=== PATIENT | female | born 1955 | race Hispanic/Latino ===

== ENCOUNTER 2016-12-17 15:49 | Emergency (ER) | payer MEDICAID ==
[2016-12-17 15:55] VITALS: BMI 25.0
[2016-12-17 16:05] VITALS: TEMP 98.3
--- NOTE | 2016-12-17 17:06 | ED PDOC ---
Arrival/HPI - General Historian: Patient, Family - General Chief Complaint: Syncope Time Seen by Provider: 12/17/16 16:04 - History of Present Illness Narrative History of Present Illness (Text): 12/17/16 16:55 Pt is a 61 year old female with past medical history significant for seizures and high cholesterol who presents with recent seizure activity 30 minutes prior to arrival. The patient is joined by her brother in the room for the interview. The patient is able to recall walking into a grocery store earlier today with feelings of severe headache and lethargy and then waking up surrounded by bystanders. Pt states she often feels these symptoms prior to her seizures. The patient's brother reports that eye witnesses reported seeing the patient collapse and visibly convulse. He is unsure of how long the convulsions lasted or whether or not the patient struck her head when she fell. Patient was brought to the ED emergency department via EMS. Pt reports her last seizure activity was 12/13/2016 and she is compliant with her current epileptic medical regiment of Zonisamide and Lacosamide. She denies new medications and illicit drug use. She denies headache, change in vision, fever, diarrhea, or shortness of breath. 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) - Musculoskeletal/Rheumatological Hx Back Pain: Yes (Sciatic nerve) - Gastrointestinal Hx Gall Bladder Disease: Yes Hx Gastroesophageal Reflux: Yes - Psychiatric Hx Depression: No Hx Emotional Abuse: No Hx Physical Abuse: No Hx Substance Use: No - Surgical History Hx Cholecystectomy: Yes - Anesthesia Hx Anesthesia Reactions: No Hx Malignant Hyperthermia: No - Suicidal Assessment Feels Threatened In Home Enviroment: No Family/Social History - Physician Review Nursing Documentation Reviewed: Yes Family/Social History: No Known Family HX Smoking Status: Never Smoked Hx Alcohol Use: No Hx Substance Use: No Hx Substance Use Treatment: No Allergies/Home Meds Allergies/Adverse Reactions: Allergies No Known Allergies Allergy (Verified 12/17/16 15:55) Home Medications: Home Meds Medication Instructions Recorded Confirmed Unobtainable 12/17/16 12/17/16 Review of Systems - Physician Review All systems were reviewed & negative as marked: Yes - Review of Systems Constitutional: absent: Fevers Eyes: absent: Vision Changes Respiratory: absent: SOB Cardiovascular: absent: Chest Pain Neurological: Headache. absent: Focal Weakness Physical Exam Vital Signs Reviewed: Yes Temperature: Afebrile Blood Pressure: Normal Pulse: Regular Respiratory Rate: Normal Appearance: Positive for: Well-Appearing Pain Distress: None Mental Status: Positive for: Alert and Oriented X 3 Finger Stick Blood Glucose: 130 - Systems Exam Head: Present: Atraumatic, Normocephalic Pupils: Present: PERRL Extroacular Muscles: Present: EOMI Mouth: Present: Moist Mucous Membranes Neck: Present: Normal Range of Motion. No: Meningeal Signs Respiratory/Chest: Present: Clear to Auscultation, Good Air Exchange. No: Respiratory Distress, Accessory Muscle Use, Wheezes Cardiovascular: Present: Regular Rate and Rhythm, Normal S1, S2. No: Murmurs Abdomen: Present: Normal Bowel Sounds. No: Tenderness, Distention, Peritoneal Signs Upper Extremity: Present: Normal Inspection. No: Cyanosis, Edema Lower Extremity: Present: Normal Inspection. No: Edema Neurological: Present: GCS=15, CN II-XII Intact, Speech Normal, Motor Func Grossly Intact, Normal Sensory Function Skin: Present: Warm, Dry, Normal Color. No: Rashes Psychiatric: Present: Alert, Oriented x 3, Normal Insight, Normal Concentration Medical Decision Making - Lab Interpretations I have reviewed the lab results: Yes - RAD Interpretation Diamond Saw Operator: Radiologist - EKG Interpretation Interpreted by ED Physician: Yes Type: 12 lead EKG ED Course and Treatment: 12/17/16 17:09 Impression: Pt is a 61 year old female with past medical history significant for seizures who presents to the emergency department after have witnessed seizure activity 30 minutes prior to arrival. Differential Diagnosis included but are not limited to: - Primary seizure - Syncope Plan: - Imaging: EKG, CT w/o contrast of Head - Labs: CBC, CMP, Mg, Phos, Cardiac enzymes - Discussed with patient she is not allowed to drive - Discussed with patient to follow up with neurologist - Reassess and disposition Progress Notes: 12/17/16 17:19 12/17/16 21:04 - Pt refuses to stay and wait for primary care provider for further work up - Discussed with patient need to follow up with primary care provider and neurologist and patient is in understanding - Advised patient she is to not drive, operate heavy machinery, or swim (Benjamin Sher) 12/17/16 18:05 Patient seen and examined with resident. Came up with treatment and disposition plan with resident. pt has a hx of seizures, had a witnessed seizure currently in no distress with no focal neurological deficits on examination PMD pages, awaiting callback pt refuses to be admitted, states she wants to be dc'd home ambulates with steady gait in no distress instructed to f/u with her PMD and neurologist outpatient and to return to the ER for new or worsening symptoms (Cody Vasquez) - Lab Interpretations Lab Results: 12/17/16 18:00 12/17/16 18:00 Lab Results 12/17/16 18:00: Sodium 139, Potassium 4.0, Chloride 106, Carbon Dioxide 24, Anion Gap 13, BUN 12, Creatinine 0.9, Est GFR ( Amer) > 60, Est GFR (Non- Af Amer) > 60, Random Glucose 93, Calcium 9.0, Phosphorus 2.5, Magnesium 2.1, Total Bilirubin 0.3, AST 20, ALT 16, Alkaline Phosphatase 124, Lactate Dehydrogenase 562, Total Creatine Kinase 49, Troponin I < 0.01, Total Protein 6.8, Albumin 3.8, Globulin 3.0, Albumin/Globulin Ratio 1.3 12/17/16 18:00: WBC 7.6, RBC 4.47, Hgb 13.8, Hct 40.4, MCV 90.4, MCH 30.9, MCHC 34.2, RDW 12.7, Plt Count 297, MPV 8.8, Gran % 74.5 H, Lymph % (Auto) 15.4 L, [place] % (Auto) 6.7 H, Eos % (Auto) 3.0, Baso % (Auto) 0.4, Gran # 5.66, Lymph # 1.2, [place] # 0.5, Eos # 0.2, Baso # 0.03 12/17/16 16:11: POC Glucose (mg/dL) 130 H - RAD Interpretation Narrative RAD Interpretations (Text): 12/17/16 19:58 Findings: Brain: There are scattered foci of hypodensity within the cerebral white matter , likely representing small vessel ischemic disease in a patient this age. The acuity of the white matter disease is indeterminate. The white-nicole differentiation is preserved demonstrating no acute territorial type infarct. The white-nicole differentiation is preserved demonstrating no acute territorial type infarct. There is mild prominence of the ventricles and sulci, compatible with atrophy. No acute intracranial hemorrhage is seen. (Benjamin Sher) Radiology Orders: 12/17/16 16:51 HEAD W/O CONTRAST [CT] Stat - EKG Interpretation EKG Interpretation (Text): 12/17/16 17:20 Rate of 73 bpm, NSR, No acute ST elevations (Benjamin Sher) - PA / PINION SORTER / Resident Statement MD/DO has reviewed & agrees with the documentation as recorded. MD/DO has examined the patient and agrees with the treatment plan. Disposition/Present on Arrival - Present on Arrival Any Indicators Present on Arrival: No History of DVT/PE: No History of Uncontrolled Diabetes: No Urinary Catheter: No History of Decub. Ulcer: No History Surgical Site Infection Following: None - Disposition Have Diagnosis and Disposition been Completed?: Yes Disposition Time: 21:06 Patient Plan: Discharge - Disposition Diagnosis: Seizure Disposition: HOME/ ROUTINE Condition: GOOD Additional Instructions: Mrs. Puentes, thank you for letting us take care of you today. Your provider was Dr. Sher. You were treated for seizure. The emergency medical care you received today was directed at your acute symptoms. If you were prescribed any medication, please fill it and take as directed. It may take several days for your symptoms to resolve. Return to the Emergency Department if your symptoms worsen, do not improve, or if you have any other problems. Please contact your doctor or call one of the physicians/clinics you have been referred to that are listed on the Patient Visit Information form that is included in your discharge packet. Bring any paperwork you were given at discharge with you along with any medications you are taking to your follow up visit. Our treatment cannot replace ongoing medical care by a primary care provider (PCP) outside of the emergency department. Thank you for allowing the [facility] team to be part of your care today. FOLLOW UP WITH PRIMARY CARE PROVIDER FOLLOW UP WITH NEUROLOGIST Referrals: Halley Fowler MD [Primary Care Provider] - Follow up with primary
[2016-12-17 17:13] VITALS: PULSE 75
[2016-12-17 18:08] LABS: BASO # 0.03 K/mm3 (0.0-2.0); BASO % 0.4 % (0.0-3.0); EOS # 0.2 (0.0-0.7); GRAN # 5.66 (1.4-6.5); GRAN % 74.5 % (50.0-68.0); HEMOGLOBIN 13.8 gm/dL (12.0-16.0); LYMPH # 1.2 (1.2-3.4); LYMPH % 15.4 % (22.0-35.0); MEAN CELL VOLUME 90.4 fL (80.0-105.0); MEAN CORPUSCULAR HEMOGLOBIN 30.9 pg (25.0-35.0); MEAN CORPUSCULAR HGB CONC 34.2 g/dl (31.0-37.0); MEAN PLATELET VOLUME 8.8 fl (7.0-11.0); MONO # 0.5 (0.1-0.6); MONO % 6.7 % (1.0-6.0); PLATELET COUNT 297 10^3/uL (120.0-450.0); RBC 4.47 10^6/uL (3.5-6.1); RED CELL DISTRIBUTION WIDTH 12.7 % (11.5-14.5); WHITE BLOOD COUNT 7.6 10^3/ul (4.5-11.0)
[2016-12-17 18:24] LABS: ALB/GLOB RATIO 1.3 (1.1-1.8); ALBUMIN 3.8 g/dL (3.0-4.8); ALT/SGPT 16 U/L (7-56); AST/SGOT 20 U/L (15-39); BLOOD UREA NITROGEN 12 mg/dL (7-21); GFR AFRICAN-AMERICAN > 60; GFR NON-AFRICAN AMERICAN > 60; MAGNESIUM 2.1 mg/dL (1.7-2.2)
[2016-12-17 18:43] LABS: TROPONIN I < 0.01 ng/mL
--- NOTE | 2016-12-17 19:38 | CT ---
EXAM: CT Head Without Intravenous Contrast CLINICAL HISTORY: The patient age is 61 years old and is female; Pain; Headache; Headache not specified; Additional info: Seizure activity Facility exam id and description: Ct heads head w/o contrast TECHNIQUE: Axial computed tomography images of the head/brain without intravenous contrast. This CT exam was performed using one or more of the following dose reduction techniques: automated exposure control, adjustment of the mA and/or kV according to patient size, and/or use of iterative reconstruction technique. EXAM DATE/TIME: 12/17/2016 4:51 PM COMPARISON: No relevant prior studies available. FINDINGS: Brain: There are scattered foci of hypodensity within the cerebral white matter, likely representing small vessel ischemic disease in a patient this age. The acuity of the white matter disease is indeterminate. The white-nicole differentiation is preserved demonstrating no acute territorial type infarct. There is mild prominence of the ventricles and sulci, compatible with atrophy. No acute intracranial hemorrhage is seen. Midline shift: There is no midline shift. Ventricles: See above. Bones/joints: The calvarium demonstrates no evidence for a depressed fracture. Soft tissues: No acute abnormality. Vasculature: There is mild atherosclerotic calcification of the cavernous internal carotid arteries. Sinuses: Unremarkable as visualized. No acute sinusitis. Mastoid air cells: No mastoid effusion. IMPRESSION: 1. No acute intracranial hemorrhage or acute territorial type infarct. 2. There are scattered foci of hypodensity within the cerebral white matter, likely representing small vessel ischemic disease in a patient this age. 3. Mild atrophy.
--- NOTE | 2016-12-17 20:32 | CARD ---
APPROVED REPORT EKG Measurement Heart [id number] <Conclusion> Normal sinus rhythm with sinus arrhythmia Normal ECG
[2016-12-17 21:30] VITALS: BP 140/72; RESP 16; O2SAT 99
== END 2016-12-17 21:15 | disposition home or self-care (01) ==
LOC: ED 15:49
DX: R56.9 Unspecified convulsions (principal); E78.00 Pure hypercholesterolemia, unspecified

== ENCOUNTER 2017-08-09 08:52 | Inpatient (IN) | payer MEDICAID ==
--- NOTE | 2017-08-09 09:30 | ED PDOC ---
Arrival/HPI - General Historian: Patient - History of Present Illness Time/Duration: Prior to Arrival, > week Symptom Onset: Sudden Symptom Course: Resolved Quality: Tightness Severity Level: 1 Activities at Onset: Rest Context: Sitting <Avtar Hayes - Last Filed: 08/09/17 13:59> <Fidencio Bertrand - Last Filed: 08/09/17 18:16> - General Chief Complaint: Palpitations Time Seen by Provider: 08/09/17 09:15 - History of Present Illness Narrative History of Present Illness (Text): 08/09/17 09:24 61F w/ hx of seizures presents to ED w/ elevated heart rate in 140s from same day surgery. Patient was initially scheduled to have a colonoscopy and EGD for heart burn for many years. In the ED patient denies current symptoms of chest pain, heart palpitations, nausea, vomiting diarrhea. One week ago, patient had left sided chest pain described as chest tightness radiated to the left arm. Pain subsided after 2-3 days. Admits to being non-compliant with taking Aspirin. Of note: sees employment consultant and is scheduled to have a stress test done in August of 2017. PMH: Seziures ALL: NKDA SocialHx: denies Tobacco, etoh, recreational drug use. 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 States she needs to get back home to care for her . stays active and walks 15 blocks per day 08/09/17 09:30 (MerchantAvtar) Past Medical History - Provider Review Nursing Documentation Reviewed: Yes - Travel History Have you recently traveled outside [place] w/in the past 3 mons?: No - Past History Past History: Non-Contributing - Infectious Disease Hx of Infectious Diseases: None - Tetanus Immunization Tetanus Immunization: Unknown - Cardiac Hx Heart Murmur: Yes - Pulmonary Hx Respiratory Disorders: No - Neurological Hx Seizures: Yes - HEENT Hx HEENT Disorder: No - Renal Hx Renal Disorder: No - Endocrine/Metabolic Hx Endocrine Disorders: No - Hematological/Oncological Hx Blood Disorders: No - Integumentary Hx Dermatological Disorder: No - Musculoskeletal/Rheumatological Hx Musculoskeletal Disorders: No - Gastrointestinal Hx Gall Bladder Disease: Yes Hx Gastroesophageal Reflux: Yes - Genitourinary/Gynecological Hx Genitourinary Disorders: No - Psychiatric Hx Panic Disorder: Yes Hx Substance Use: No - Surgical History Hx Cholecystectomy: Yes - Anesthesia Hx Anesthesia Reactions: No Hx Malignant Hyperthermia: No - Suicidal Assessment Feels Threatened In Home Enviroment: No <ConyAvtar - Last Filed: 08/09/17 13:59> Family/Social History - Physician Review Nursing Documentation Reviewed: Yes Family/Social History: Other (non-contributory) Smoking Status: Never Smoked Hx Alcohol Use: No Hx Substance Use: No Hx Substance Use Treatment: No <MerchantAvtar - Last Filed: 08/09/17 13:59> Allergies/Home Meds <RenettakinzaAvtar - Last Filed: 08/09/17 13:59> <Fidencio Bertrand - Last Filed: 08/09/17 18:16> Allergies/Adverse Reactions: Allergies No Known Allergies Allergy (Verified 08/09/17 11:58) Home Medications: Home Meds Medication Instructions Recorded Confirmed Topiramate [Topamax] 50 mg PO BID 08/04/17 08/09/17 Zonisamide [Zonegran] 200 mg PO AMHS 08/04/17 08/09/17 Clobazam [Onfi] 10 mg PO BID 08/09/17 08/09/17 Lacosamide [Vimpat] 100 mg PO HS 08/09/17 08/09/17 Multivitamin [Daily Corinne] 1 tab PO DAILY 08/09/17 08/09/17 Pantoprazole Sodium [Protonix] 40 mg PO DAILY 08/09/17 08/09/17 Review of Systems - Physician Review All systems were reviewed & negative as marked: Yes - Review of Systems Constitutional: absent: Fatigue, Weight Change, Fevers Eyes: absent: Vision Changes ENT: absent: Hearing Changes, Tinnitus, Epistaxis Respiratory: absent: SOB, Cough, Sputum Cardiovascular: absent: Chest Pain, Palpitations, Edema, Calf Pain Gastrointestinal: absent: Abdominal Pain, Stool Changes, Constipation, Nausea, Vomiting Musculoskeletal: absent: Arthralgias, Back Pain Skin: absent: Rash, Pruritis Neurological: absent: Headache, Dizziness, Focal Weakness Endocrine: absent: Diaphoresis Hemo/Lymphatic: absent: Adenopathy Psychiatric: absent: Anxiety <MerchantAvtar - Last Filed: 08/09/17 13:59> Physical Exam Vital Signs Reviewed: Yes Temperature: Afebrile Blood Pressure: Normal Pulse: Tachycardic Respiratory Rate: Normal Appearance: Positive for: Well-Appearing, Non-Toxic, Comfortable Pain Distress: None Mental Status: Positive for: Alert and Oriented X 3 - Systems Exam Head: Present: Atraumatic, Normocephalic Pupils: Present: PERRL Extroacular Muscles: Present: EOMI Conjunctiva: Present: Normal Mouth: Present: Moist Mucous Membranes Neck: Present: Normal Range of Motion. No: JVD, Lymphadenopathy, Bruit Respiratory/Chest: Present: Clear to Auscultation, Good Air Exchange. No: Respiratory Distress, Accessory Muscle Use Cardiovascular: Present: Normal S1, S2, Tachycardic. No: Rub, Gallop Abdomen: No: Tenderness, Distention, Normal Bowel Sounds Upper Extremity: Present: Normal Inspection, NORMAL PULSES. No: Edema Lower Extremity: Present: Normal Inspection. No: Edema, CALF TENDERNESS Neurological: Present: GCS=15, Speech Normal Skin: Present: Warm, Normal Color Psychiatric: Present: Alert, Oriented x 3 <Avtar Hayes - Last Filed: 08/09/17 13:59> Vital Signs Temp Pulse Pulse Resp BP Pulse Ox 08/09/17 16:00 61 18 145/61 98 08/09/17 14:17 68 118/66 08/09/17 14:00 61 18 118/66 97 08/09/17 11:46 61 16 105/71 97 08/09/17 10:19 97.8 F 08/09/17 09:21 144 H 142/79 08/09/17 09:13 144 H 18 142/79 100 08/09/17 09:04 55 L Medical Decision Making - Lab Interpretations I have reviewed the lab results: Yes Interpretation: All labs normal - EKG Interpretation Interpreted by ED Physician: Yes Type: 12 lead EKG Comparison: Different from prev. EKG <Avtar Hayes - Last Filed: 08/09/17 13:59> <Fidencio Bertrand - Last Filed: 08/09/17 18:16> ED Course and Treatment: 08/09/17 09:32 Aspirin Cardizem for tachycardia- Rate control Cardiac enzymes CBC/CMP/Mag/Phos CXR/EKG 08/09/17 11:53 Discussed case w/ Dr. Martinez in detail. Will start on 30 Cardizem PO q6. ( Avtar Hayes) A 61 year old female sent in for atrial fibrillation. In agreement with resident note, which includes further HPI details. Patient was seen and evaluated with resident, came up with plan and treatment together. Patient with new onset a-fib, rule out ACS. 08/09/17 08:14 EKG prior to arrival showed atrial fibrillation at 125 BPM. Interpreted by me. Cardizem 10 ml IV given for heart rate in the 130's which corrected rate to 70 08/09/17 09:00 EKG shows sinus bradycardia at 56 BPM with 1st degree AV block. Interpreted by me. 08/09/17 11:[address] Garcia who will accept the patient to her service. Dr. Martinez was consulted and recommended Cardizem 30mg PO q6h. He will order the Lovenox if needed. Aspirin 81mg is good for now. He will order an echo. Patient admitted to Telemetry for New Onset Afib. (Fidencio Bertrand) - Lab Interpretations Narrative Lab Interpretation (Text): 08/09/17 11:54 Reviewed all labs. WNL. Trops negative (Avtar) Lab Results: 08/09/17 09:30 08/09/17 09:30 Lab Results 08/09/17 09:30: Sodium 144, Potassium 4.5, Chloride 110 H, Carbon Dioxide 22, Anion Gap 16, BUN 15, Creatinine 1.0, Est GFR ( Amer) > 60, Est GFR (Non- Af Amer) 56, Random Glucose 93, Calcium 10.0, Phosphorus 2.5, Magnesium 2.2, Total Bilirubin 0.6, AST 32, ALT 31, Alkaline Phosphatase 111, Lactate Dehydrogenase 637, Total Creatine Kinase 146, Troponin I < 0.01, Total Protein 7.6, Albumin 4.3, Globulin 3.3, Albumin/Globulin Ratio 1.3 08/09/17 09:30: WBC 6.9, RBC 5.12, Hgb 15.5, Hct 46.3, MCV 90.4, MCH 30.3, MCHC 33.5, RDW 13.0, Plt Count 299, MPV 9.6, Gran % 61.5, Lymph % (Auto) 28.7, [place] % (Auto) 5.8, Eos % (Auto) 3.6, Baso % (Auto) 0.4, Gran # 4.25, Lymph # (Auto) 2.0, [place] # (Auto) 0.4, Eos # (Auto) 0.3, Baso # (Auto) 0.03 - RAD Interpretation Radiology Orders: 08/09/17 10:09 CXR [CHEST PORTABLE] [RAD] Stat - EKG Interpretation EKG Interpretation (Text): 08/09/17 09:34 Sinus mary w/ 1st Degree AV block (Merchant,Avtar) - Medication Orders Current Medication Orders: Acetaminophen (Tylenol 325mg Tab) 650 mg PO Q6H PRN PRN Reason: Fever >100.4 F Diltiazem HCl (Cardizem) 30 mg PO Q8 REJI Last Admin: 08/09/17 14:17 Dose: 30 mg MAR Pulse and Blood Pressure Document 08/09/17 14:17 [facility] [place] (Rec: 08/09/17 14:17 [facility] [place] [id number]) Pulse Pulse Rate (60-90) 68 Blood Pressure Blood Pressure (100/60-150/90) 118/66 Lorazepam (Ativan) 1 mg IVP Q2H PRN; Protocol PRN Reason: Seizure activity Multivitamins (Thera Tab) 1 tab PO DAILY REJI Non-Formulary Medication (Clobazam [Onfi]) 10 mg PO BID REJI Non-Formulary Medication (Lacosamide [Vimpat]) 100 mg PO HS REJI Pantoprazole Sodium (Protonix Ec Tab) 40 mg PO DAILY REJI Topiramate (Topamax) 50 mg PO BID REJI PRN Reason: Protocol Zonisamide (Zonegran) 200 mg PO AMHS REJI Discontinued Medications Aspirin (Aspirin Chewable) 81 mg PO STAT STA Stop: 08/09/17 09:26 Last Admin: 08/09/17 09:53 Dose: 81 mg Diltiazem HCl (Cardizem) 20 mg IVP STAT STA Stop: 08/09/17 09:16 Last Admin: 08/09/17 09:21 Dose: 20 mg IVP Administration Document 08/09/17 09:21 [facility] [place] (Rec: 08/09/17 09:22 [facility] [place] [id number]) Charges for Administration # of IVP Administrations 1 MAR Pulse and Blood Pressure Document 08/09/17 09:21 [facility] [place] (Rec: 08/09/17 09:22 [facility] [place] [id number]) Pulse Pulse Rate (60-90) 144 Blood Pressure Blood Pressure (100/60-150/90) 142/79 Non-Formulary Medication (Multivitamin [Daily Corinne]) 1 tab PO DAILY REJI - PA / INTERPRETER TRANSLATOR / Resident Statement MD/DO has reviewed & agrees with the documentation as recorded. /DO has examined the patient and agrees with the treatment plan. <Avtar Hayes - Last Filed: 08/09/17 13:59> Disposition/Present on Arrival - Present on Arrival Any Indicators Present on Arrival: No History of DVT/PE: No History of Uncontrolled Diabetes: No Urinary Catheter: No History of Decub. Ulcer: No History Surgical Site Infection Following: None - Disposition Have Diagnosis and Disposition been Completed?: Yes Disposition Time: 12:26 Patient Plan: Admission <Avtar Hayes - Last Filed: 08/09/17 13:59> - Disposition Disposition Time: 11:14 <Fidencio Bertrand - Last Filed: 08/09/17 18:16> - Disposition Diagnosis: Atrial fibrillation with RVR Disposition: HOSPITALIZED Condition: STABLE
[2017-08-09 10:03] LABS: ALB/GLOB RATIO 1.3 (1.1-1.8); ALBUMIN 4.3 g/dL (3.0-4.8); ALT/SGPT 31 U/L (7-56); AST/SGOT 32 U/L (14-36); BLOOD UREA NITROGEN 15 mg/dL (7-21); GFR AFRICAN-AMERICAN > 60; GFR NON-AFRICAN AMERICAN 56
[2017-08-09 10:05] LABS: BASO # 0.03 K/mm3 (0.0-2.0); BASO % 0.4 % (0.0-3.0); EOS # 0.3 (0.0-0.7); EOS % 3.6 % (1.5-5.0); GRAN # 4.25 (1.4-6.5); GRAN % 61.5 % (50.0-68.0); HEMOGLOBIN 15.5 g/dL (12.0-16.0); LYMPH % 28.7 % (22.0-35.0); MEAN CELL VOLUME 90.4 fl (80.0-105.0); MEAN CORPUSCULAR HEMOGLOBIN 30.3 pg (25.0-35.0); MEAN CORPUSCULAR HGB CONC 33.5 g/dl (31.0-37.0); MEAN PLATELET VOLUME 9.6 fl (7.0-11.0); MONO # 0.4 (0.1-0.6); MONO % 5.8 % (1.0-6.0); RBC 5.12 10^6/uL (3.5-6.1); WHITE BLOOD COUNT 6.9 10^3/ul (4.5-11.0)
[2017-08-09 10:15] LABS: TROPONIN I < 0.01 ng/mL
--- NOTE | 2017-08-09 10:44 | RAD ---
HISTORY: A-Fib- hx of Chest pain COMPARISON: 01/14/2015 FINDINGS: LUNGS: No active pulmonary disease. PLEURA: No significant pleural effusion identified, no pneumothorax apparent. CARDIOVASCULAR: Normal. OSSEOUS STRUCTURES: No significant abnormalities. VISUALIZED UPPER ABDOMEN: Normal. OTHER FINDINGS: None. IMPRESSION: No active disease.
--- NOTE | 2017-08-09 12:35 | CP.PCM.HP ---
<Clara Dexter - Last Filed: 08/09/17 14:08> History of Present Illness - History of Present Illness History of Present Illness: CC: I was sent here from Endo suite HPI: 61F with PMHx of seizure disorder presented to emergency department from the endoscopy suite for Afib with RVR. Patient states she was scheduled for a colonoscopy and EGD today when she was found to be in atrial fibrillation with RVR on the monitor. She denied any acute complaints of chest pain, palpitations , lightheadedness, SOB at the time. Patient does not have a history of Afib or any cardiac history. She reports she had a high temp of 102F the day earlier with associated chills and diaphoresis for which she took ASA and it resolved. Patient also reports a single bloody BM that occurred 2 days ago. Stool was loose with bright red blood and maroon stool. Her last colonoscopy was 2 years ago and she has a hx of colon polyps and hemorrhoids as well as severe symptomatic GERD. No personal hx of colon cancer or esophageal cancer. Patient also disclosed a history of frequent seizures and takes several seizure medications. She was enrolled in a blinded drug trial where she took an unlabled seizure medication for 6 weeks. She stopped this medication 3 weeks ago because it did not give her any symptomatic relief. She has on average 2 seizures per week. Her seizures occur during sleep and are usually witnessed by her . She takes 325 mg of aspirin following seizures and states she is compliant with her seizure medications. Patient denied recent travel or immobilization. No sick contacts. She has been eating and drinking normally. With the exception of the above and her recent bowel prep before colonoscopy, she has normal daily bowel movements. She got a flu shot this year. ROS: Denies any chest pain, dyspnea, palpitations, headache, vision changes, abdominal pain, nausea, vomiting, new swelling, weight loss, fatigue. PMHx: seizures (dx at age 18), GERD, migraine headaches, prior hx of panic attacks, heart murmur when she was a child PSurgHx: Neck surgery (unclear which kind), , cholecystectomy, appendectomy Meds: pls see chart ALL: NKDA SocHx: denies Tobacco, etoh, recreational drug use. 2 liters of coca cola per day (no other caffeine intake). 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 States she needs to get back home to care for her . stays active and walks 15 blocks per day FamHx: Father with throat CA. Mother with heart disease, from chronic kidney disease. Brothers, sisters, nephews all have heart disease (unspecified) . PMD: Dr. Fowler - last seen 1-2weeks ago GI: Dr. Douglas Cardiology: None Neurologist: Dr. Moreland Present on Admission - Present on Admission Any Indicators Present on Admission: No Review of Systems - Constitutional Constitutional: As Per HPI, Chills, Fever. absent: Weight Loss, Weakness - EENT Eyes: As Per HPI. absent: Blurred Vision Ears: As Per HPI. absent: Disequilibrium, Dizziness Nose/Mouth/Throat: As Per HPI. absent: Sore Throat - Cardiovascular Cardiovascular: As Per HPI, Irregular Heart Rhythm. absent: Chest Pain, Dyspnea , Dyspnea on Exertion, Edema, Pain Radiating to Arm/Neck/Jaw, Leg Edema, Palpitations - Respiratory Respiratory: As Per HPI. absent: Cough, Dyspnea, Chest Congestion - Gastrointestinal Gastrointestinal: As Per HPI, Heartburn, Hematochezia, Loose Stools. absent: Abdominal Pain, Constipation, Diarrhea, Hematemesis, Nausea, Vomiting - Genitourinary Genitourinary: As Per HPI. absent: Dysuria, Hematuria, Pyuria - Musculoskeletal Musculoskeletal: As Per HPI. absent: Back Pain, Numbness, Tingling - Integumentary Integumentary: As Per HPI. absent: Dry Skin, Rash - Neurological Neurological: As Per HPI. absent: Dizziness, Numbness, Headaches, Tingling - Psychiatric Psychiatric: As Per HPI. absent: Anxiety, Depression - Endocrine Endocrine: As Per HPI. absent: Polydipsia, Polyphagia, Polyuria - Hematologic/Lymphatic Hematologic: As Per HPI. absent: Easy Bleeding, Easy Bruising, Lymphadenopathy Past Patient History - Infectious Disease Hx of Infectious Diseases: None - Tetanus Immunizations Tetanus Immunization: Unknown - Past Social History Smoking Status: Never Smoked - CARDIAC Hx Heart Murmur: Yes - PULMONARY Hx Respiratory Disorders: No - NEUROLOGICAL Hx Seizures: Yes - HEENT Hx HEENT Problems: No - RENAL Hx Chronic Kidney Disease: No - ENDOCRINE/METABOLIC Hx Endocrine Disorders: No - HEMATOLOGICAL/ONCOLOGICAL Hx Blood Disorders: No - INTEGUMENTARY Hx Dermatological Problems: No - MUSCULOSKELETAL/RHEUMATOLOGICAL Hx Musculoskeletal Disorders: No - GASTROINTESTINAL Hx Gall Bladder Disease: Yes Hx Gastroesophageal Reflux: Yes - GENITOURINARY/GYNECOLOGICAL Hx Genitourinary Disorders: No - PSYCHIATRIC Hx Panic Symptoms: Yes Hx Substance Use: No - SURGICAL HISTORY Hx Cholecystectomy: Yes - ANESTHESIA Hx Anesthesia Reactions: No Hx Malignant Hyperthermia: No Meds Allergies/Adverse Reactions: Allergies Allergy/AdvReac Type Severity Reaction Status Date / Time No Known Allergies Allergy Verified 08/09/17 11:58 Physical Exam - Constitutional Appears: Well, No Acute Distress - Head Exam Head Exam: ATRAUMATIC - Eye Exam Eye Exam: EOMI, Normal appearance, PERRL. absent: Conjunctival injection, Scleral icterus Pupil Exam: NORMAL ACCOMODATION Additional comments: No proptosis. - ENT Exam ENT Exam: Mucous Membranes Moist - Neck Exam Neck exam: Positive for: Full Rom, Normal Inspection - Respiratory Exam Respiratory Exam: Chest Wall Tenderness, Clear to Auscultation Bilateral, NORMAL BREATHING PATTERN. absent: Accessory Muscle Use, Rhonchi, Wheezes, Respiratory Distress Additional comments: Tenderness over L anterior axillary fold. Closely associated with linear 4 cm scar from surgical incision, s/p implant removal. - Cardiovascular Exam Cardiovascular Exam: Tachycardia, Irregular Rhythm, +S1, +S2. absent: Gallop, Rubs, Systolic Murmur - GI/Abdominal Exam GI & Abdominal Exam: Normal Bowel Sounds, Soft. absent: Distended, Firm, Guarding, Rigid, Tenderness - Rectal Exam Rectal Exam: Deferred - Extremities Exam Extremities exam: Positive for: calf tenderness Additional comments: R calf tenderness to palpation. No L calf swelling or tenderness. 2+ DP pulses bilaterally. No pretibial edema. - Back Exam Back exam: NORMAL INSPECTION. absent: rash noted - Neurological Exam Neurological exam: Alert, CN II-XII Intact, Oriented x3 - Psychiatric Exam Psychiatric exam: Normal Affect, Normal Mood - Skin Skin Exam: Dry, Intact, Normal Color, Warm Results - Vital Signs Recent Vital Signs: Last Vital Signs Temp 97.8 F 08/09/17 10:19 Pulse 61 08/09/17 11:46 Resp 16 08/09/17 11:46 BP 105/71 08/09/17 11:46 Pulse Ox 97 08/09/17 11:46 - Labs Result Diagrams: 08/09/17 09:30 08/09/17 09:30 Assessment & Plan - Assessment and Plan (Free Text) Assessment: 61yo female PMHx seizure disorder presents with new-onset Afib with RVR. Plan: 1. Chest pain r/o ACS - Troponin q6h First troponin negative - f/u A1c, fasting lipid panel, hsCRP - hold ASA for GI bleed - f/u Echo - Heart Healthy Diet - Cardio Dr. Martinez on board 2. New-onset Afib with RVR. - [id number] score 1 - HASBLED score 2 - Cardizem 30mg po q8h as per cardio reccs - no anticoagulation in light of GI bleed - f/u TSH, free T4 - f/u Echo - Cardio Dr. Martinez on board 3. GI bleed - patient has hx of GERD and polyps and hemorrhoids in the past - no jacob blood noted and H&H is stable on admission - Daily H&H - Hold anticoagulation due to risk of worsening bleed - Consider GI consult for inpatient colonoscopy/EGD when medically optimized 4. R calf pain - Well's Score for DVT: 1 - Bilateral LE Doppler US - Hold SCDs 5. Hx of fever - Resolved on admission - CXR: NAD - f/u procalcitonin - f/u blood cultures x2, UA, urine culture, rapid flu - Tylenol prn for fever 6. Hx of seizure disorder - Restarted on home meds Clobazam 10mg po bid Vimpat 100mg po hs Zonisamide 200mg po amhs - Ativan 1mg q2h prn seizures - Seizure and fall precautions - 60g protein in diet GI ppx: Protonix 40mg po qd DVT ppx: c/i secondary to bleed; SCDs if dopplers negative for DVT Diet: HHD with 60g protein Precautions: Fall/Seizure Discussed with Dr. Keith Dexter PGY2 <Fer Parker - Last Filed: 08/10/17 08:57> Results - Vital Signs Recent Vital Signs: Last Vital Signs Temp 97.6 F 08/10/17 06:00 Pulse 63 08/10/17 06:00 Resp 21 08/10/17 06:00 BP 136/52 L 08/10/17 06:00 Pulse Ox 98 08/10/17 06:00 - Labs Result Diagrams: 08/10/17 06:45 08/10/17 06:45 Labs: Laboratory Results - last 24 hr 08/09/17 08/09/17 08/09/17 13:43 15:51 20:54 WBC RBC Hgb Hct MCV MCH MCHC RDW Plt Count MPV Gran % Lymph % (Auto) Pettis % (Auto) Eos % (Auto) Baso % (Auto) Gran # Lymph # (Auto) Pettis # (Auto) Eos # (Auto) Baso # (Auto) Sodium Potassium Chloride Carbon Dioxide Anion Gap BUN Creatinine Est GFR ( Amer) Est GFR (Non-Af Amer) Random Glucose Calcium Phosphorus Magnesium Total Bilirubin AST ALT Alkaline Phosphatase Troponin I < 0.01 < 0.01 Total Protein Albumin Globulin Albumin/Globulin Ratio Triglycerides Cholesterol LDL Cholesterol Direct HDL Cholesterol Thyroxine (T4) TSH 3rd Generation Influenza Typ A,B (EIA) Negative for flu a/b 08/10/17 08/10/17 08/10/17 06:45 06:45 06:45 WBC 8.6 D RBC 4.68 Hgb 14.0 Hct 42.3 MCV 90.4 MCH 29.9 MCHC 33.1 RDW 13.0 Plt Count 325 MPV 9.7 Gran % 67.3 Lymph % (Auto) 23.4 Pettis % (Auto) 6.6 H Eos % (Auto) 2.4 Baso % (Auto) 0.3 Gran # 5.79 Lymph # (Auto) 2.0 Pettis # (Auto) 0.6 Eos # (Auto) 0.2 Baso # (Auto) 0.03 Sodium 143 Potassium 4.2 Chloride 112 H Carbon Dioxide 20 L Anion Gap 16 BUN 18 Creatinine 0.9 Est GFR ( Amer) > 60 Est GFR (Non-Af Amer) > 60 Random Glucose 77 Calcium 9.3 Phosphorus 3.0 Magnesium 2.2 Total Bilirubin 0.4 AST 29 ALT 23 Alkaline Phosphatase 90 Troponin I Total Protein 6.9 Albumin 3.8 Globulin 3.1 Albumin/Globulin Ratio 1.2 Triglycerides 83 Cholesterol 169 LDL Cholesterol Direct 93 HDL Cholesterol 49 Thyroxine (T4) 8.9 TSH 3rd Generation 1.63 Influenza Typ A,B (EIA) Attending/Attestation - Attestation I have personally seen and examined this patient.: Yes I have fully participated in the care of the patient.: Yes I have reviewed all pertinent clinical information: Yes Notes (Text): I have seen and examined the patient at bedside. Agree with the above note with the following additions/ exceptions: Briefly this is 61 year old female with history of uncontrolled seizures, GERD, migraine, headaches, panic attack, cholecystectomy, appendectomy who was scheduled for colonoscopy today however in SDS was found to have new onset Afib with RVR. Patient denies any chest pain , sob, palpitation or any other complaints. First set of trop is negative. Will order echo. CHADSVASC score is 1. HASBLED is 2. Patient reports bleeding in stools for the past few days. Will hold anticoagulation for now. Cardiology eval appreciated. Will continue cardizem. Follow up blood cultures and procal as she reported tactile fever. Upon discharge patient will follow up with Dr Fowler. Dr Fer Parker
[2017-08-09] MEDS ORDERED: Enoxaparin 80 mg Syringe SC SCH (13:00)
--- NOTE | 2017-08-09 13:05 | CARD ---
APPROVED REPORT EKG Measurement Heart [id number] MD [id number] <Conclusion> Sinus bradycardia with sinus arrhythmia with 1st degree AV block Nonspecific T wave abnormality LAD
--- NOTE | 2017-08-09 14:46 | CON ---
DATE: 08/09/2017 SERVICE: Cardiology. REASON FOR THE CONSULTATION: AFib, new onset. BRIEF CLINICAL HISTORY: This is a 61-year-old female who came in for endoscopy today, but while the patient being hooked up, he was found to be in AFib, so the patient was sent to the ER. Patient denies any chest pain, shortness of breath, denies any palpitation. Cardiology consult was called for evaluation and further management. Patient is currently in ER, bed 6. PAST MEDICAL HISTORY: Significant for gastroesophageal reflux, seizure disorder, status post cardiac catheterization by Dr. Barrera at [facility] in 2013, found to be normal. PAST SURGICAL HISTORY: Significant for neck surgery, section, cholecystectomy, appendectomy in the past also admission cardiac catheterization [address] Barrera at [facility], where usually patient goes periodically and heart is good. FAMILY HISTORY: Father had a throat cancer. Mother had heart disease and renal disease. SOCIAL HISTORY: Denies smoking. Denies any history of alcohol abuse. No history of illicit drug abuse. Lives with the . CURRENT MEDICATIONS: Patient is taking at home Zonegran 200 mg p.o., Topamax for seizure, Protonix and multivitamin. REVIEW OF SYSTEMS: As per HPI. PHYSICAL EXAMINATION: As follows: VITAL SIGNS: Temperature afebrile, heart rate 86, blood pressure 105/51. HEENT: PERRLA. Intact. NECK: Supple. No carotid bruit or thyromegaly. CHEST: Clear to auscultation. HEART: S1, S2, regular. ABDOMEN: Soft. EXTREMITIES: Clubbing and cyanosis negative. LABORATORY DATA: Blood workup: WBC 6.9, hemoglobin 15.5, hematocrit 46.3, platelet count 299. Chemistry shows sodium 144, potassium 4.5, chloride 110, carbon dioxide 22, anion gap of 15, BUN 16, creatinine 1. Troponin 0.01 negative. Previous cardiac workup as follows: Patient had a cardiac catheterization 3 years ago at [facility] by Dr. Barrera as told, essentially normal coronary. Patient in the most recent echo, here at [place] that was 01/15/2015, almost 2-1/2 years ago that showed ejection fraction 55%, [id number] aortic regurgitation, trace mitral regurgitation, [id number] tricuspid regurgitation, RV systolic pressure 29, trivial PE dated 01/05/2015. EKG shows initial admission, AFib, rate of 125, nonspecific ST-T changes. Patient was given 10 mg of Cardizem and patient converted to normal sinus. Post spontaneous cardioversion after Cardizem shows normal sinus, sinus mary at rate of 56, poor RR progression, left axis deviation. No acute ST-T changes noted. IMPRESSION: Paroxysmal atrial fibrillation, history of seizure disorder, history of cardiac catheterization 3 years ago at [facility] that was negative, previous echo 3 years ago normal, mild mitral regurgitation, mild tricuspid regurgitation, mild aortic regurgitation, who came in for gastroesophageal reflux and gastrointestinal workup, found to be in atrial fibrillation, converted to normal sinus after 10 mg of IV Cardizem. RECOMMENDATIONS: We will admit, give a dose of Lovenox. Though patient has a low MONTSE score, long-term anticoagulation, probably patient may not need. We will start Cardizem 30 mg q.8 hours. We will get echo to assess LV function, lipid profile, TSH, hemoglobin A1c and follow up EKG and echo. Thank you, Dr. Lorenzo, for providing us the opportunity in taking care of the patient, Tequila Puentes. Further recommendations will be made depending on the hospital course. Dillon Martinez MD
--- NOTE | 2017-08-09 15:36 | US ---
HISTORY: Leg pain and swelling. Evaluate for DVT PHYSICIAN(S): Raj Harris MD. TECHNIQUE: Duplex sonography and color-flow Doppler with graded compression were used to evaluate the deep venous systems of both lower extremities. FINDINGS: The visualized deep venous systems of both lower extremities are sonographically normal and compressible. Normal wave forms and augmentation are seen. There is no sonographic evidence for deep venous thrombosis in the visualized segments of both lower extremities. IMPRESSION: No sonographic evidence for deep venous thrombosis in the visualized segments of both lower extremities.
[2017-08-09] MEDS: CLOBAZAM 10 MG PO SCH (20:00)
[2017-08-09] MEDS: LACOSAMIDE 100 MG PO SCH (22:10)
[2017-08-09 23:40] VITALS: BMI 25.7
[2017-08-09] MEDS ORDERED: Pneumococcal 23-Valent Vaccine IM ONE (23:40)
[2017-08-09] MEDS ORDERED: Influenza Vaccine 60 mcg/0.5 mL SYR (4YR UP) IM ONE (23:40)
[2017-08-10 07:23] LABS: BASO # 0.03 K/mm3 (0.0-2.0); BASO % 0.3 % (0.0-3.0); EOS # 0.2 (0.0-0.7); EOS % 2.4 % (1.5-5.0); GRAN # 5.79 (1.4-6.5); GRAN % 67.3 % (50.0-68.0); LYMPH % 23.4 % (22.0-35.0); MEAN CELL VOLUME 90.4 fl (80.0-105.0); MEAN CORPUSCULAR HEMOGLOBIN 29.9 pg (25.0-35.0); MEAN CORPUSCULAR HGB CONC 33.1 g/dl (31.0-37.0); MEAN PLATELET VOLUME 9.7 fl (7.0-11.0); MONO # 0.6 (0.1-0.6); MONO % 6.6 % (1.0-6.0); RBC 4.68 10^6/uL (3.5-6.1); WHITE BLOOD COUNT 8.6 10^3/ul (4.5-11.0)
[2017-08-10 07:42] LABS: ALB/GLOB RATIO 1.2 (1.1-1.8); ALBUMIN 3.8 g/dL (3.0-4.8); ALT/SGPT 23 U/L (7-56); AST/SGOT 29 U/L (14-36); BLOOD UREA NITROGEN 18 mg/dL (7-21); CALCIUM 9.3 mg/dL (8.4-10.5); GFR AFRICAN-AMERICAN > 60; GFR NON-AFRICAN AMERICAN > 60; HDL CHOLESTEROL 49 mg/dL (29-60)
[2017-08-10 07:52] LABS: LDL CHOLESTEROL 93 mg/dL (0-129)
[2017-08-10 07:59] LABS: T4 8.9 ug/dL (5.5-11.0)
[2017-08-10] MEDS ORDERED: levETIRAcetam 500 MG in Sodium Chloride 0.9% 100 ML IV ONE (09:40)
[2017-08-10] MEDS ORDERED: levETIRAcetam 500mg IVPB 500 MG/100 ML BAG IVPB ONE (10:00)
[2017-08-10] MEDS ORDERED: Non Formulary Medication (Multivitamin [Daily Vite] 1 TAB) PO SCH (10:00)
--- NOTE | 2017-08-10 10:03 | PCM.RRT ---
<SharMaria R walters - Last Filed: 08/10/17 09:54> JIGGER CROWN POUNCING MACHINE OPERATOR Nurse Assessment - Situation Date: 08/10/17 Time JIGGER CROWN POUNCING MACHINE OPERATOR was called: 09:34 JIGGER CROWN POUNCING MACHINE OPERATOR Responder Arrival Time: 09:35 JIGGER CROWN POUNCING MACHINE OPERATOR Location:: [address] [place] [address] Room Number: 374-1 JIGGER CROWN POUNCING MACHINE OPERATOR Reason for Call: Change in Mental Status JIGGER CROWN POUNCING MACHINE OPERATOR Called By: RN - IV IV Inserted during JIGGER CROWN POUNCING MACHINE OPERATOR?: No - Respiratory Oxygen Delivery Method: Nasal Cannula @L/min Oxygen Flow Rate: 2 Received Nebulizer Treatments:: No Was the Patient Ventilated with Bag/Mask 100% O2?: No Secretions Suctioned?: No Was the Patient Intubated?: No Was the Patient Placed on a Ventilator?: No - Medication Medications Administered During JIGGER CROWN POUNCING MACHINE OPERATOR: 500mg keppra IVPB ONCE - Diagnostic Test Ordered EKG: No Chest X-Ray: No CT Scan: No Other Diagnostic Test Ordered: MRI brain, EEG CPR started during JIGGER CROWN POUNCING MACHINE OPERATOR?: No - Vital Signs Vital Sign: Rapid Response Vital Sign Blood Pressure 125/71 Pulse Rate 70 Respiratory Rate 20 Temperature 99.1 F Oxygen Saturation 100 - Finger Stick Blood Glucose Finger Stick Blood Glucose: 125 - [place] Coma Scale Coma Scale Eye Opening: Spontaneous Coma Scale Motor: Obeys Commands Movement Coma Scale Verbal: Oriented - Time JIGGER CROWN POUNCING MACHINE OPERATOR Ended Time JIGGER CROWN POUNCING MACHINE OPERATOR Ended: 09:40 - Vital Signs at end of JIGGER CROWN POUNCING MACHINE OPERATOR Vital Signs at end of JIGGER CROWN POUNCING MACHINE OPERATOR: Rapid Response End Vital Sign Blood Pressure 133/59 Pulse Rate 65 Respiratory Rate 18 Temperature 99.1 F O2 Sat by Pulse Oximetry 100 - Recommendations 5) JIGGER CROWN POUNCING MACHINE OPERATOR Level of Care Recommendations: Remain in current setting Notifications: Attending Physician I.Reason for JIGGER CROWN POUNCING MACHINE OPERATOR - A) Acute Change in Patient: (Select all that apply): Acute change in mental status - Neurological Status (Select all that apply): Alert, Responsive, Oriented, Verbal, Follows Commands - Respiratory Oxygen Delivery Method: Nasal Cannula @L/min Oxygen Flow Rate: 2 - Constitutional Appears: No Acute Distress - Head Head Exam: ATRAUMATIC, NORMAL INSPECTION, NORMOCEPHALIC Additional Comments: Tongue had bite roberto. - Eyes Eye Exam: Normal appearance, PERRL - Respiratory Exam Respiratory Exam: Clear to Ausculation Bilateral, NORMAL BREATHING PATTERN. absent: Rales, Rhonchi, Wheezes - Cardiovascular Exam Cardiovascular Exam: REGULAR RHYTHM, +S1, +S2. absent: Gallop, Rubs, Murmur - GI/Abdominal Exam GI & Abdominal Exam: Soft, Normal Bowel Sounds. absent: Tenderness (r), Mass, Rebound - Neurological Exam Neurological Exam: Alert, Awake, CN II-XII Intact, Oriented x3 - Extremities Exam Extremities Exam: Normal Inspection. absent: Calf Tenderness, Pedal Edema Plan - Assessment of Findings&Treatment Plan This is a 61yo F with PMH of seizure disorder had rapid response called for seizure like activity and change in mental status. RR team responded immediately. Patient was noted to have tongue biting, but no incontinence upon examination. She is A&O x 3 and denies any chest pain, shortness of breath, numbness/tingling, fever/chills, vision or hearing changes. PMD, Dr. Parker at bedside. Vitals and labs reviewed from the am and were within normal limits. Neurology is already consulted on this patient. Plan: MRI brain EEG Kera 500 IVPB Case seen, discussed and reviewed with attending. Tristen Paz PGY2 <Fer Parker B - Last Filed: 08/12/17 10:47> JIGGER CROWN POUNCING MACHINE OPERATOR Nurse Assessment - Vital Signs Vital Sign: Rapid Response Vital Sign Blood Pressure 125/71 Pulse Rate 70 Respiratory Rate 20 Temperature 99.1 F Oxygen Saturation 100 - Vital Signs at end of JIGGER CROWN POUNCING MACHINE OPERATOR Vital Signs at end of JIGGER CROWN POUNCING MACHINE OPERATOR: Rapid Response End Vital Sign Blood Pressure 133/59 Pulse Rate 65 Respiratory Rate 18 Temperature 99.1 F O2 Sat by Pulse Oximetry 100 Attending/Attestation - Attestation I have personally seen and examined this patient.: Yes I have fully participated in the care of the patient.: Yes I have reviewed all pertinent clinical information, including history, physical exam and plan: Yes Notes (Text): I have seen and examined the patient at bedside. Agree with the above management. Discussed with neurologist as well.
[2017-08-10 10:30] LABS: URINE BILIRUBIN SMALL (NEGATIVE); URINE BLOOD NEGATIVE (NEGATIVE); URINE GLUCOSE (UA) NEGATIVE (NEGATIVE); URINE LEUKOCYTE ESTERASE NEGATIVE Leu/uL (NEGATIVE); URINE PROTEIN NEGATIVE mg/dL (<30 mg/dL); URINE UROBILINOGEN 0.2 E.U./dL (<1 E.U./dL)
[2017-08-10] MEDS: CLOBAZAM 10 MG PO SCH ×2 (10:30→17:57)
[2017-08-10] MEDS: Multivitamin Therapeutic Tab PO SCH (10:34)
[2017-08-10] MEDS: Pantoprazole 40 mg EC Tab PO SCH (10:34)
[2017-08-10 10:36] LABS: URINE APPEARANCE CLEAR (CLEAR); URINE COLOR YELLOW (YELLOW)
--- NOTE | 2017-08-10 12:29 | CP.PCM.CON ---
History of Present Illness - History of Present Illness History of Present Illness: Mrs. Puentes is a 61-year-old woman with refractory epilepsy, with recent paroxysmal atrial fibrillation, who has had fevers and was to have a colonoscopy , but had several witnessed seizures. She has been managed by Dr. Lowery ( epileptologist), with multiple AEDs, including recent experimental medications. She generally has 2-3 seizures a week, but has had more recently since her has had a major stroke and requires care at home. She has a significant amount of stress as well. When I spoke with the patient, she was at baseline, pleasant and conversant. Review of Systems - Review of Systems All systems: reviewed and no additional remarkable complaints except Past Patient History - Infectious Disease Hx of Infectious Diseases: None - Tetanus Immunizations Tetanus Immunization: Unknown - Past Social History Smoking Status: Never Smoked - CARDIAC Hx Cardiac Disorders: Yes Hx Heart Murmur: Yes - PULMONARY Hx Respiratory Disorders: No - NEUROLOGICAL Hx Neurological Disorder: Yes Hx Seizures: Yes - HEENT Hx HEENT Problems: No - RENAL Hx Chronic Kidney Disease: No - ENDOCRINE/METABOLIC Hx Endocrine Disorders: No - HEMATOLOGICAL/ONCOLOGICAL Hx Blood Disorders: No - INTEGUMENTARY Hx Dermatological Problems: No - MUSCULOSKELETAL/RHEUMATOLOGICAL Hx Musculoskeletal Disorders: Yes (lumbar radiculopathy,sciatica,) Hx Falls: Yes - GASTROINTESTINAL Hx Gastrointestinal Disorders: Yes Hx Gall Bladder Disease: Yes Hx Gastroesophageal Reflux: Yes - GENITOURINARY/GYNECOLOGICAL Hx Genitourinary Disorders: Yes (c/s x 1) - PSYCHIATRIC Hx Psychophysiologic Disorder: Yes Hx Panic Symptoms: Yes Hx Substance Use: No - SURGICAL HISTORY Hx Surgeries: Yes (sx to nose from fall hitting a bowling ball,stimulator removed fr l chest,) Hx Cholecystectomy: Yes Other/Comment: c/s x 1 - ANESTHESIA Hx Anesthesia Reactions: No Hx Malignant Hyperthermia: No Meds Allergies/Adverse Reactions: Allergies Allergy/AdvReac Type Severity Reaction Status Date / Time No Known Allergies Allergy Verified 08/09/17 11:58 - Medications Medications: Current Medications Acetaminophen (Tylenol 325mg Tab) 650 mg PO Q6H PRN PRN Reason: Fever >100.4 F Diltiazem HCl (Cardizem) 30 mg PO Q8 [facility] Home Med (Home Med) 1 unit PO HS RJEI Last Admin: 08/09/17 22:10 Dose: 1 unit Lorazepam (Ativan) 1 mg IVP Q2H PRN; Protocol PRN Reason: Seizure activity Last Admin: 08/10/17 01:15 Dose: 1 mg Multivitamins (Thera Tab) 1 tab PO DAILY [facility] Last Admin: 08/10/17 10:34 Dose: 1 tab Non-Formulary Medication (Clobazam [Onfi]) 10 mg PO BID [facility] Last Admin: 08/10/17 10:30 Dose: Not Given Pantoprazole Sodium (Protonix Ec Tab) 40 mg PO DAILY [facility] Last Admin: 08/10/17 10:34 Dose: 40 mg Topiramate (Topamax) 50 mg PO BID [facility] PRN Reason: Protocol Last Admin: 08/10/17 10:33 Dose: 50 mg Zonisamide (Zonegran) 200 mg PO AMHS [facility] Last Admin: 08/09/17 22:10 Dose: 200 mg Physical Exam - Neurological Exam Neurological exam: Alert, CN II-XII Intact, Normal Gait, Oriented x3, Reflexes Normal Results - Vital Signs Recent Vital Signs: Last Vital Signs Temp 97.6 F 08/10/17 06:00 Pulse 139 H 08/10/17 09:31 Resp 21 08/10/17 06:00 BP 136/52 L 08/10/17 06:00 Pulse Ox 98 08/10/17 06:00 - Labs Result Diagrams: 08/10/17 06:45 08/10/17 06:45 Labs: Laboratory Results - last 24 hr 08/09/17 08/09/17 08/09/17 13:43 15:51 20:54 WBC RBC Hgb Hct MCV MCH MCHC RDW Plt Count MPV Gran % Lymph % (Auto) [place] % (Auto) Eos % (Auto) Baso % (Auto) Gran # Lymph # (Auto) [place] # (Auto) Eos # (Auto) Baso # (Auto) Sodium Potassium Chloride Carbon Dioxide Anion Gap BUN Creatinine Est GFR ( Amer) Est GFR (Non-Af Amer) Random Glucose Calcium Phosphorus Magnesium Total Bilirubin AST ALT Alkaline Phosphatase Troponin I < 0.01 < 0.01 Total Protein Albumin Globulin Albumin/Globulin Ratio Triglycerides Cholesterol LDL Cholesterol Direct HDL Cholesterol Thyroxine (T4) TSH 3rd Generation Urine Color Urine Appearance Urine pH Ur Specific [place] Urine Protein Urine Glucose (UA) Urine Ketones Urine Blood Urine Nitrate Urine Bilirubin Urine Urobilinogen Ur Leukocyte Esterase Influenza Typ A,B (EIA) Negative for flu a/b 08/10/17 08/10/17 08/10/17 06:45 06:45 06:45 WBC 8.6 D RBC 4.68 Hgb 14.0 Hct 42.3 MCV 90.4 MCH 29.9 MCHC 33.1 RDW 13.0 Plt Count 325 MPV 9.7 Gran % 67.3 Lymph % (Auto) 23.4 [place] % (Auto) 6.6 H Eos % (Auto) 2.4 Baso % (Auto) 0.3 Gran # 5.79 Lymph # (Auto) 2.0 [place] # (Auto) 0.6 Eos # (Auto) 0.2 Baso # (Auto) 0.03 Sodium 143 Potassium 4.2 Chloride 112 H Carbon Dioxide 20 L Anion Gap 16 BUN 18 Creatinine 0.9 Est GFR ( Amer) > 60 Est GFR (Non-Af Amer) > 60 Random Glucose 77 Calcium 9.3 Phosphorus 3.0 Magnesium 2.2 Total Bilirubin 0.4 AST 29 ALT 23 Alkaline Phosphatase 90 Troponin I Total Protein 6.9 Albumin 3.8 Globulin 3.1 Albumin/Globulin Ratio 1.2 Triglycerides 83 Cholesterol 169 LDL Cholesterol Direct 93 HDL Cholesterol 49 Thyroxine (T4) 8.9 TSH 3rd Generation 1.63 Urine Color Urine Appearance Urine pH Ur Specific [place] Urine Protein Urine Glucose (UA) Urine Ketones Urine Blood Urine Nitrate Urine Bilirubin Urine Urobilinogen Ur Leukocyte Esterase Influenza Typ A,B (EIA) 08/10/17 10:10 WBC RBC Hgb Hct MCV MCH MCHC RDW Plt Count MPV Gran % Lymph % (Auto) [place] % (Auto) Eos % (Auto) Baso % (Auto) Gran # Lymph # (Auto) [place] # (Auto) Eos # (Auto) Baso # (Auto) Sodium Potassium Chloride Carbon Dioxide Anion Gap BUN Creatinine Est GFR ( Amer) Est GFR (Non-Af Amer) Random Glucose Calcium Phosphorus Magnesium Total Bilirubin AST ALT Alkaline Phosphatase Troponin I Total Protein Albumin Globulin Albumin/Globulin Ratio Triglycerides Cholesterol LDL Cholesterol Direct HDL Cholesterol Thyroxine (T4) TSH 3rd Generation Urine Color Yellow Urine Appearance Clear Urine pH 6.0 Ur Specific [place] >= 1.030 Urine Protein Negative Urine Glucose (UA) Negative Urine Ketones >=80 Urine Blood Negative Urine Nitrate Negative Urine Bilirubin Small H Urine Urobilinogen 0.2 Ur Leukocyte Esterase Negative Influenza Typ A,B (EIA) Assessment & Plan (1) Epilepsy Assessment and Plan: I recommend continuing the current AEDs and furthermore suggest epilepsy surgery. I have recommended Dr. Ama Abdalla at [email or web address]] to her, who is a functional epilepsy surgeon. Otherwise, we will treat her seizures with Ativan 2-4 mg IV depending on the severity, and she will follow up with Dr. Lowery. Status: Acute (2) Atrial fibrillation with RVR Assessment and Plan: I recommend stroke prevention with Eliquis 5 mg BID. Status: Acute
[2017-08-10] MEDS ORDERED: ZONEGRAN 100 MG PO ONE (12:45)
--- NOTE | 2017-08-10 13:17 | CT ---
PROCEDURE: CT HEAD WITHOUT CONTRAST. HISTORY: Seizure COMPARISON: 12/17/2016 TECHNIQUE: Axial computed tomography images were obtained through the head/brain without intravenous contrast. Radiation dose: Total exam DLP = 739.96 mGy-cm. This CT exam was performed using one or more of the following dose reduction techniques: Automated exposure control, adjustment of the mA and/or kV according to patient size, and/or use of iterative reconstruction technique. FINDINGS: HEMORRHAGE: No intracranial hemorrhage. BRAIN: No mass effect or edema. No atrophy or chronic microvascular ischemic changes. VENTRICLES: Unremarkable. No hydrocephalus. CALVARIUM: Unremarkable. PARANASAL SINUSES: Unremarkable as visualized. No significant inflammatory changes. MASTOID AIR CELLS: Unremarkable as visualized. No inflammatory changes. OTHER FINDINGS: None. IMPRESSION: No acute intracranial abnormalities. No significant findings to account for the clinical presentation. No significant interval change compared to the prior examination(s).
[2017-08-10] MEDS: ZONISAMIDE 100MG CAPS PO SCH ×2 (13:49→22:35)
[2017-08-10] MEDS ORDERED: Bisacodyl 5mg EC Tab PO ONE ×2 (14:29)
[2017-08-10] MEDS ORDERED: Peg-Electrolyte Oral Soln 4L (Golytely) PO ONE (14:29)
--- NOTE | 2017-08-10 15:07 | CP.PCM.PN ---
<EnmanuelJarred Morris - Last Filed: 08/10/17 15:02> Subjective - Date & Time of Evaluation Date of Evaluation: 08/10/17 Time of Evaluation: 15:02 - Subjective Subjective: Medicine progress note: Dr. Frances Parker Patient seen and examined at bedside. Patient had an [employer] called due to seizure. EEG, CT Head, and Keppra 500 were ordered. Other than that patient is doing well, no complaints. Objective - Vital Signs/Intake and Output Vital Signs (last 24 hours): Temp Pulse Resp BP Pulse Ox 97.6 F 81 21 140/65 98 08/10/17 06:00 08/10/17 14:00 08/10/17 06:00 08/10/17 13:47 08/10/17 06:00 Intake and Output: 08/10/17 08/10/17 06:59 18:59 Intake Total 20 Output Total 0 Balance 20 - Medications Medications: Current Medications Acetaminophen (Tylenol 325mg Tab) 650 mg PO Q6H PRN PRN Reason: Fever >100.4 F Diltiazem HCl (Cardizem) 30 mg PO Q8 [facility] Last Admin: 08/10/17 13:47 Dose: 30 mg Home Med (Home Med) 1 unit PO HS [facility] Last Admin: 08/09/17 22:10 Dose: 1 unit Home Med (Home Med) 2 unit PO DAILY [facility] Last Admin: 08/10/17 13:49 Dose: 2 unit Home Med (Home Med) 3 unit PO HS [facility]JI Lorazepam (Ativan) 2 mg IVP Q2H PRN; Protocol PRN Reason: Seizure activity Multivitamins (Thera Tab) 1 tab PO DAILY [facility] Last Admin: 08/10/17 10:34 Dose: 1 tab Non-Formulary Medication (Clobazam [Onfi]) 10 mg PO BID [facility] Last Admin: 08/10/17 10:30 Dose: Not Given Pantoprazole Sodium (Protonix Ec Tab) 40 mg PO DAILY [facility] Last Admin: 08/10/17 10:34 Dose: 40 mg Topiramate (Topamax) 50 mg PO BID REJI PRN Reason: Protocol Last Admin: 08/10/17 10:33 Dose: 50 mg - Labs Labs: 08/10/17 06:45 08/10/17 06:45 - Constitutional Appears: Well - Head Exam Head Exam: ATRAUMATIC, NORMAL INSPECTION, NORMOCEPHALIC - Eye Exam Eye Exam: EOMI, Normal appearance, PERRL Pupil Exam: NORMAL ACCOMODATION, PERRL - ENT Exam ENT Exam: Mucous Membranes Moist, Normal Exam - Neck Exam Neck Exam: Full ROM, Normal Inspection. absent: Lymphadenopathy - Respiratory Exam Respiratory Exam: Clear to Ausculation Bilateral, NORMAL BREATHING PATTERN - Cardiovascular Exam Cardiovascular Exam: REGULAR RHYTHM, +S1, +S2. absent: Murmur - GI/Abdominal Exam GI & Abdominal Exam: Soft, Normal Bowel Sounds. absent: Tenderness - Extremities Exam Extremities Exam: Full ROM, Normal Capillary Refill, Normal Inspection. absent : Joint Swelling, Pedal Edema - Back Exam Back Exam: NORMAL INSPECTION - Neurological Exam Neurological Exam: Alert, Awake, CN II-XII Intact, Normal Gait, Oriented x3 - Psychiatric Exam Psychiatric exam: Normal Affect, Normal Mood - Skin Skin Exam: Dry, Intact, Normal Color, Warm Assessment and Plan - Assessment and Plan (Free Text) Assessment: 61yo female PMHx seizure disorder presents with new-onset Afib with RVR. Chest pain r/o ACS - Troponin q6h: 3 normal - f/u A1c - lipid panel wnl - hold ASA for GI bleed - f/u Echo - Heart Healthy Diet - Cardio Dr. Martinez on board New-onset Afib with RVR. - [id number] score 1 - HASBLED score 2 - Cardizem 30mg po q8h as per cardio reccs - no anticoagulation in light of GI bleed - f/u TSH, free T4 - f/u Echo - Cardio Dr. Martinez on board - Patient can be started on ASA after Endoscopy tomorrow, per Dr. Martinez, as long as normal GI bleed - patient has hx of GERD and polyps and hemorrhoids in the past - no jacob blood noted and H&H is stable on admission - Daily H&H - Hold anticoagulation due to risk of worsening bleed - GI on consult: Dr. Marie - Patient set up for endoscopy tomorrow R calf pain - No DVT, SCD's placed Hx of fever - Resolved on admission - CXR: NAD - f/u procalcitonin: negative - f/u blood cultures x2, UA, urine culture, rapid flu - Tylenol prn for fever Hx of seizure disorder - Restarted on home meds Clobazam 10mg po bid Vimpat 100mg po hs Zonisamide 200mg po amhs - Ativan 1mg q2h prn seizures - Seizure and fall precautions - 60g protein in diet <Fer Parker B - Last Filed: 08/12/17 10:52> Objective - Vital Signs/Intake and Output Vital Signs (last 24 hours): Temp Pulse Resp BP Pulse Ox 98.4 F 65 20 119/65 93 L 08/12/17 06:00 08/12/17 06:00 08/12/17 06:00 08/12/17 06:00 08/12/17 06:00 Intake and Output: 08/12/17 08/12/17 06:59 18:59 Intake Total 360 Output Total 400 Balance -40 - Medications Medications: Current Medications Acetaminophen (Tylenol 325mg Tab) 650 mg PO Q6H PRN PRN Reason: Fever >100.4 F Last Admin: 08/11/17 03:33 Dose: 650 mg Acetaminophen (Tylenol 325mg Tab) 650 mg PO Q6H PRN PRN Reason: Headache Diltiazem HCl (Cardizem) 30 mg PO Q8 [facility] Last Admin: 08/12/17 05:38 Dose: 30 mg Home Med (Home Med) [address] [facility] Last Admin: 08/11/17 23:33 Dose: 1 unit Home Med (Home Med) 2 unit PO DAILY [facility] Last Admin: 08/12/17 09:42 Dose: 2 unit Home Med (Home Med) 3 [address] PO [facility] Last Admin: 08/11/17 23:34 Dose: 3 unit Sodium Chloride (Sodium Chloride 0.9%) 1,000 mls @ 100 mls/hr IV .Q10H [facility] Last Admin: 08/12/17 05:30 Dose: 100 mls/hr Lorazepam (Ativan) 2 mg IVP Q2H PRN; Protocol PRN Reason: Seizure activity Last Admin: 08/11/17 19:08 Dose: 2 mg Multivitamins (Thera Tab) 1 tab PO DAILY [facility] Last Admin: 08/12/17 09:42 Dose: 1 tab Non-Formulary Medication (Clobazam [Onfi]) 10 mg PO BID [facility] Last Admin: 08/11/17 17:42 Dose: Not Given Pantoprazole Sodium (Protonix Ec Tab) 40 mg PO DAILY [facility] Last Admin: 08/12/17 09:41 Dose: 40 mg Topiramate (Topamax) 50 mg PO BID [facility] PRN Reason: Protocol Last Admin: 08/12/17 09:41 Dose: 50 mg - Labs Labs: 08/12/17 06:20 08/12/17 06:20 Attending/Attestation - Attestation I have personally seen and examined this patient.: Yes I have fully participated in the care of the patient.: Yes I have reviewed all pertinent clinical information, including history, physical exam and plan: Yes Notes (Text): I have seen and examined the patient at bedside. Agree with the above note with the following additions/ exceptions: Briefly this is 61 year old female with history of uncontrolled seizures, GERD, migraine, headaches, panic attack, cholecystectomy, appendectomy who was scheduled for colonoscopy 1 day ago and in SDS was found to have new onset Afib with RVR. Patient denies any chest pain , sob, palpitation or any other complaints. Serial trop is negative. Echo result pending. CHADSVASC score is 1. HASBLED is 2. Patient reports bleeding in stools for the past few days. Will hold anticoagulation for now. Patient is scheduled for scope tomorrow. Cardiology eval appreciated. Will continue cardizem PO. Procal negative. Follow up blood cultures as she reported tactile fever. Upon discharge patient will follow up with Dr Fowler. Dr Fer Parker
--- NOTE | 2017-08-10 16:04 | PN ---
DATE: 08/10/2017 CONSULTING PHYSICIAN: Dillon Martinez M.D. REASON FOR CONSULTATION: AFib new onset, converted to normal sinus, multiple seizure episode last night. During the seizure, the patient had SVT. SUBJECTIVE: The patient denies any chest pain, shortness of breath, any palpitation. OBJECTIVE: GENERAL: Not in apparent distress. VITAL SIGNS: Temperature afebrile, heart rate 60, blood pressure 136/52. HEENT: PERRLA. Extraocular muscles intact. NECK: Supple. No carotid bruit or thyromegaly. CHEST: Clear to auscultation. HEART: S1 and S2, regular. ABDOMEN: Soft. EXTREMITIES: Clubbing and cyanosis negative. LABORATORY DATA: Blood workup as follows: WBC 8.6, hemoglobin 14, hematocrit 42.3, platelet count 325. Chemistry shows sodium , potassium , chloride 112, carbon dioxide 20, anion gap of 16, BUN 18, creatinine 0.7. Troponin 0.01, negative. IMPRESSION: A 61-year-old female with past medical history significant for seizure disorder. Yesterday, she mentioned that the patient had a cardiac catheterization done at [facility] [place] by Dr. Barrera, but said that was a stress test and was negative. Admitted yesterday after being prepped for endoscopy, colonoscopy. Found to be in atrial fibrillation, 10 mg of Cardizem was given IV and the patient converted to normal sinus. Last night, the patient had 3 episodes of seizure, though the patient has known history of seizure. She said prior to coming here to hospital, had 2 episodes of seizure at home, but does not want to come to the hospital, because she takes care of the . History of gastroesophageal reflux. The patient was started on Lovenox, order was written, but later on the patient said that she has bright red blood per rectum also, so it was discontinued. PLAN: To get an echo. We will get in touch with Dr. Barrera, diamond sizer to assess when the patient's last stress test or cath was done. It was yesterday the patient said cath, but today she is saying that it was probably a stress test. So far no evidence of acute [place], no evidence of any anginal symptoms, though the patient had SVT during the seizure, but 4 episodes of seizures last night; otherwise, the patient is fairly stable, get echo. Follow up lipid profile, TSH, hemoglobin A1c. We will follow with you. Once the patient is stable, can be discharged home on Cardizem 30 mg 3 times a day. When the patient is stable from Neurologic point of view, the patient is okay to be discharged. Follow up with Dr. Barrera, but we will get in touch with Dr. Barrera and give the input and turn over to him about the patient. Thank you, Dr. Lorenzo, for providing us the opportunity in taking care of the patient, Tequila Puentes. Dillon Martinez MD
--- NOTE | 2017-08-10 16:46 | CP.PCM.CON ---
History of Present Illness - History of Present Illness History of Present Illness: Patient seen and examined at bedside earlier today. This is a 61F with PMHx of seizure disorder presented to emergency department from the endoscopy suite for sudden onset of new Afib with RVR. Patient states she was scheduled for a colonoscopy and EGD today when she was found to be in atrial fibrillation with RVR on the monitor. She denied any acute complaints of chest pain, palpitations , lightheadedness, SOB at the time. Patient does not have a history of Afib or any cardiac history. Patient also reports a single bloody BM that occurred 2 days ago. Stool was loose with bright red blood and maroon stool. Her last colonoscopy was 2 years ago and she has a hx of colon polyps and hemorrhoids as well as severe symptomatic GERD. No personal hx of colon cancer or esophageal cancer. Patient also disclosed a history of frequent seizures and takes several seizure medications. She was enrolled in a blinded drug trial where she took an unlabled seizure medication for 6 weeks. She stopped this medication 3 weeks ago because it did not give her any symptomatic relief. She has on average 2 seizures per week. Her seizures occur during sleep and are usually witnessed by her . Patient denied recent travel or immobilization. No sick contacts. She has been eating and drinking normally. With the exception of the above and her recent bowel prep before colonoscopy, she has normal daily bowel movements. She got a flu shot this year. This morning and last night she had multiple seizure episodes. She has been seen by the neurologist and recommended to follow with neuro surgery for further care Review of Systems - Review of Systems Review of Systems: As per HPI Past Patient History - Infectious Disease Hx of Infectious Diseases: None - Tetanus Immunizations Tetanus Immunization: Unknown - Past Social History Smoking Status: Never Smoked - CARDIAC Hx Cardiac Disorders: Yes Hx Heart Murmur: Yes - PULMONARY Hx Respiratory Disorders: No - NEUROLOGICAL Hx Neurological Disorder: Yes Hx Seizures: Yes - HEENT Hx HEENT Problems: No - RENAL Hx Chronic Kidney Disease: No - ENDOCRINE/METABOLIC Hx Endocrine Disorders: No - HEMATOLOGICAL/ONCOLOGICAL Hx Blood Disorders: No - INTEGUMENTARY Hx Dermatological Problems: No - MUSCULOSKELETAL/RHEUMATOLOGICAL Hx Musculoskeletal Disorders: Yes (lumbar radiculopathy,sciatica,) Hx Falls: Yes - GASTROINTESTINAL Hx Gastrointestinal Disorders: Yes Hx Gall Bladder Disease: Yes Hx Gastroesophageal Reflux: Yes - GENITOURINARY/GYNECOLOGICAL Hx Genitourinary Disorders: Yes (c/s x 1) - PSYCHIATRIC Hx Psychophysiologic Disorder: Yes Hx Panic Symptoms: Yes Hx Substance Use: No - SURGICAL HISTORY Hx Surgeries: Yes (sx to nose from fall hitting a bowling ball,stimulator removed fr l chest,) Hx Cholecystectomy: Yes Other/Comment: c/s x 1 - ANESTHESIA Hx Anesthesia Reactions: No Hx Malignant Hyperthermia: No Meds Allergies/Adverse Reactions: Allergies Allergy/AdvReac Type Severity Reaction Status Date / Time No Known Allergies Allergy Verified 08/09/17 11:58 - Medications Medications: Current Medications Acetaminophen (Tylenol 325mg Tab) 650 mg PO Q6H PRN PRN Reason: Fever >100.4 F Diltiazem HCl (Cardizem) 30 mg PO Q8 [facility] Last Admin: 08/10/17 13:47 Dose: 30 mg Home Med (Home Med) 1 unit PO HS [facility] Last Admin: 08/09/17 22:10 Dose: 1 unit Home Med (Home Med) 2 unit PO DAILY [facility] Last Admin: 08/10/17 13:49 Dose: 2 unit Home Med (Home Med) 3 unit PO HS [facility] Lorazepam (Ativan) 2 mg IVP Q2H PRN; Protocol PRN Reason: Seizure activity Multivitamins (Thera Tab) 1 tab PO DAILY [facility] Last Admin: 08/10/17 10:34 Dose: 1 tab Non-Formulary Medication (Clobazam [Onfi]) 10 mg PO BID [facility] Last Admin: 08/10/17 10:30 Dose: Not Given Pantoprazole Sodium (Protonix Ec Tab) 40 mg PO DAILY [facility] Last Admin: 08/10/17 10:34 Dose: 40 mg Topiramate (Topamax) 50 mg PO BID [facility] PRN Reason: Protocol Last Admin: 08/10/17 10:33 Dose: 50 mg Physical Exam - Constitutional Appears: Well, Non-toxic, No Acute Distress - Head Exam Head Exam: ATRAUMATIC, NORMAL INSPECTION, NORMOCEPHALIC - Eye Exam Eye Exam: EOMI, Normal appearance, PERRL - ENT Exam ENT Exam: Mucous Membranes Moist, Normal Exam - Respiratory Exam Respiratory Exam: Clear to Auscultation Bilateral, NORMAL BREATHING PATTERN - Cardiovascular Exam Cardiovascular Exam: REGULAR RHYTHM, RRR, +S1, +S2 - GI/Abdominal Exam GI & Abdominal Exam: Normal Bowel Sounds, Soft Additional comments: Non tender. Distended. No guarding - Neurological Exam Neurological exam: Alert, Oriented x3 - Psychiatric Exam Psychiatric exam: Normal Affect, Normal Mood - Skin Skin Exam: Dry, Normal Color Results - Vital Signs Recent Vital Signs: Last Vital Signs Temp 97.6 F 08/10/17 06:00 Pulse 81 08/10/17 14:00 Resp 21 08/10/17 06:00 BP 140/65 08/10/17 13:47 Pulse Ox 98 08/10/17 06:00 - Labs Result Diagrams: 08/10/17 06:45 08/10/17 06:45 Labs: Laboratory Results - last 24 hr 08/09/17 08/09/17 08/09/17 15:51 15:51 20:54 WBC RBC Hgb Hct MCV MCH MCHC RDW Plt Count MPV Gran % Lymph % (Auto) Hill % (Auto) Eos % (Auto) Baso % (Auto) Gran # Lymph # (Auto) Hill # (Auto) Eos # (Auto) Baso # (Auto) Sodium Potassium Chloride Carbon Dioxide Anion Gap BUN Creatinine Est GFR ( Amer) Est GFR (Non-Af Amer) POC Glucose (mg/dL) Random Glucose Hemoglobin A1c Calcium Phosphorus Magnesium Total Bilirubin AST ALT Alkaline Phosphatase Troponin I < 0.01 C-React Prot High Sens 5.63 H Total Protein Albumin Globulin Albumin/Globulin Ratio Triglycerides Cholesterol LDL Cholesterol Direct HDL Cholesterol Procalcitonin < 0.05 L Thyroxine (T4) TSH 3rd Generation Prolactin Urine Color Urine Appearance Urine pH Ur Specific [place] Urine Protein Urine Glucose (UA) Urine Ketones Urine Blood Urine Nitrate Urine Bilirubin Urine Urobilinogen Ur Leukocyte Esterase 08/10/17 08/10/17 08/10/17 06:45 06:45 06:45 WBC 8.6 D RBC 4.68 Hgb 14.0 Hct 42.3 MCV 90.4 MCH 29.9 MCHC 33.1 RDW 13.0 Plt Count 325 MPV 9.7 Gran % 67.3 Lymph % (Auto) 23.4 Hill % (Auto) 6.6 H Eos % (Auto) 2.4 Baso % (Auto) 0.3 Gran # 5.79 Lymph # (Auto) 2.0 Hill # (Auto) 0.6 Eos # (Auto) 0.2 Baso # (Auto) 0.03 Sodium 143 Potassium 4.2 Chloride 112 H Carbon Dioxide 20 L Anion Gap 16 BUN 18 Creatinine 0.9 Est GFR ( Amer) > 60 Est GFR (Non-Af Amer) > 60 POC Glucose (mg/dL) Random Glucose 77 Hemoglobin A1c 5.6 Calcium 9.3 Phosphorus 3.0 Magnesium 2.2 Total Bilirubin 0.4 AST 29 ALT 23 Alkaline Phosphatase 90 Troponin I C-React Prot High Sens Total Protein 6.9 Albumin 3.8 Globulin 3.1 Albumin/Globulin Ratio 1.2 Triglycerides 83 Cholesterol 169 LDL Cholesterol Direct 93 HDL Cholesterol 49 Procalcitonin Thyroxine (T4) TSH 3rd Generation Prolactin Urine Color Urine Appearance Urine pH Ur Specific [place] Urine Protein Urine Glucose (UA) Urine Ketones Urine Blood Urine Nitrate Urine Bilirubin Urine Urobilinogen Ur Leukocyte Esterase 08/10/17 08/10/17 08/10/17 06:45 09:47 10:10 WBC RBC Hgb Hct MCV MCH MCHC RDW Plt Count MPV Gran % Lymph % (Auto) Hill % (Auto) Eos % (Auto) Baso % (Auto) Gran # Lymph # (Auto) Hill # (Auto) Eos # (Auto) Baso # (Auto) Sodium Potassium Chloride Carbon Dioxide Anion Gap BUN Creatinine Est GFR ( Amer) Est GFR (Non-Af Amer) POC Glucose (mg/dL) 125 H Random Glucose Hemoglobin A1c Calcium Phosphorus Magnesium Total Bilirubin AST ALT Alkaline Phosphatase Troponin I C-React Prot High Sens Total Protein Albumin Globulin Albumin/Globulin Ratio Triglycerides Cholesterol LDL Cholesterol Direct HDL Cholesterol Procalcitonin Thyroxine (T4) 8.9 TSH 3rd Generation 1.63 Prolactin Urine Color Yellow Urine Appearance Clear Urine pH 6.0 Ur Specific [place] >= 1.030 Urine Protein Negative Urine Glucose (UA) Negative Urine Ketones >=80 Urine Blood Negative Urine Nitrate Negative Urine Bilirubin Small H Urine Urobilinogen 0.2 Ur Leukocyte Esterase Negative 08/10/17 10:15 WBC RBC Hgb Hct MCV MCH MCHC RDW Plt Count MPV Gran % Lymph % (Auto) Hill % (Auto) Eos % (Auto) Baso % (Auto) Gran # Lymph # (Auto) Hill # (Auto) Eos # (Auto) Baso # (Auto) Sodium Potassium Chloride Carbon Dioxide Anion Gap BUN Creatinine Est GFR ( Amer) Est GFR (Non-Af Amer) POC Glucose (mg/dL) Random Glucose Hemoglobin A1c Calcium Phosphorus Magnesium Total Bilirubin AST ALT Alkaline Phosphatase Troponin I C-React Prot High Sens Total Protein Albumin Globulin Albumin/Globulin Ratio Triglycerides Cholesterol LDL Cholesterol Direct HDL Cholesterol Procalcitonin Thyroxine (T4) TSH 3rd Generation Prolactin 21.2 H Urine Color Urine Appearance Urine pH Ur Specific [place] Urine Protein Urine Glucose (UA) Urine Ketones Urine Blood Urine Nitrate Urine Bilirubin Urine Urobilinogen Ur Leukocyte Esterase Assessment & Plan - Assessment and Plan (Free Text) Assessment: 61 yr old F with seizure disorder and new onset A fib with RVR when she presented for outpatient EGD/ colonoscopy for GI bleeding, now rate controlled seen by fisheries director and cleared for chalo procedural anesthesia. She had several short episodes of seizures on several anti seizure medications yesterday and this morning. Neurology recommendations appreciated. Plan: - NPO past midnight for EGD/ colonoscopy in am - Clear liquid diet today - 2 tabs of dulcolax po and golytely to be started at 2 pm - Ate small amount of scrambled eggs in am- will give two tap water enema tonight - Patient consents to the procedure - Risks, benefits and alternatives explained - Neurology and cardiology recommendations appreciated - Discussed with the primary team- nadeem on hold till the procedure - Will give further recommendations after the procedure
--- NOTE | 2017-08-10 18:03 | CARD ---
APPROVED REPORT EXAM: Two-dimensional and M-mode echocardiogram with Doppler and color Doppler. INDICATION Atrial Fibrillation 2D DIMENSIONS Left Atrium (2D)3.9 (1.6-4.0cm)IVSd1.0 (0.7-1.1cm) LVDd4.4 (3.9-5.9cm)PWd0.9 (0.7-1.1cm) LVDs3.3 (2.5-4.0cm)FS (%) 24.9 % LVEF (%)49.6 (>50%) M-Mode DIMENSIONS Aortic Root2.80 (2.2-3.7cm)Aortic Cusp Exc.0.80 (1.5-2.0cm) Aortic Valve AoV Peak Epypiabh258.0cm/Samson Peak GR.8mmHg Mitral Valve E/A ratio0.0 TDI E/Lateral E'0.0E/Medial E'0.0 Tricuspid Valve TR Peak [id number] [id number] Peak Gr.29mmHg [id number] LEFT VENTRICLE The left ventricle is normal size. There is normal left ventricular wall thickness. The systolic function is mildly impaired.EF-45-50% There is mild hypokinesis in the basal inferolateral wall. Transmitral Doppler flow pattern is Grade II-pseudonormal filling dynamics. No left ventricle thrombus noted on this study. There is no ventricular septal defect visualized. There is no left ventricular aneurysm. There is no mass noted in the left ventricle. RIGHT VENTRICLE The right ventricle is normal size. There is normal right ventricular wall thickness. The right ventricular systolic function is normal. ATRIA The left atrium size is normal. The right atrium size is normal. The interatrial septum is intact with no evidence for an atrial septal defect. AORTIC VALVE The aortic valve is calcified and displays decreased opening. There is mild aortic regurgitation. Mils There is no aortic valvular vegetation. MITRAL VALVE The mitral valve is thickened but opens well. Mitral annular calcification is mild. Mitral regurgitation is mild. There is no mitral valve stenosis. There is no evidence of mitral valve prolapse. TRICUSPID VALVE The tricuspid valve leaflets are thickened or calcified, but open well. There is trace to mild tricuspid regurgitation.RVSP-39 mmof hg. There is no tricuspid valve stenosis. There is no tricuspid valve prolapse or vegetation. PULMONIC VALVE The pulmonic valve is borderline thickened. There is mild pulmonic valvular regurgitation. There is no pulmonic valvular stenosis. GREAT VESSELS The aortic root is normal in size. The ascending aorta is normal in size. The pulmonary artery is normal. The IVC is normal in size and collapses >50% with inspiration. PERICARDIAL EFFUSION There is no pleural effusion. There is no pericardial effusion. <Conclusion> The left ventricle is normal size. There is normal left ventricular wall thickness. The systolic function is mildly impaired.EF-45-50% There is mild aortic regurgitation. Mitral regurgitation is mild. There is trace to mild tricuspid regurgitation.RVSP-39 mmof hg. The IVC is normal in size and collapses >50% with inspiration. There is no pericardial effusion.
[2017-08-10] MEDS: LACOSAMIDE 100 MG PO SCH (22:34)
[2017-08-11 07:27] LABS: BASO # 0.02 K/mm3 (0.0-2.0); BASO % 0.2 % (0.0-3.0); EOS # 0.2 (0.0-0.7); EOS % 2.2 % (1.5-5.0); GRAN # 5.42 (1.4-6.5); HEMOGLOBIN 14.6 g/dL (12.0-16.0); LYMPH # 2.7 (1.2-3.4); LYMPH % 30.3 % (22.0-35.0); MEAN CELL VOLUME 88.7 fl (80.0-105.0); MEAN CORPUSCULAR HEMOGLOBIN 29.9 pg (25.0-35.0); MEAN CORPUSCULAR HGB CONC 33.7 g/dl (31.0-37.0); MEAN PLATELET VOLUME 9.5 fl (7.0-11.0); MONO # 0.6 (0.1-0.6); MONO % 6.3 % (1.0-6.0); RBC 4.88 10^6/uL (3.5-6.1); WHITE BLOOD COUNT 8.9 10^3/ul (4.5-11.0)
[2017-08-11 07:54] LABS: ALB/GLOB RATIO 1.3 (1.1-1.8); ALBUMIN 3.7 g/dL (3.0-4.8); ALT/SGPT 23 U/L (7-56); AST/SGOT 24 U/L (14-36); BLOOD UREA NITROGEN 15 mg/dL (7-21); CALCIUM 9.4 mg/dL (8.4-10.5); GFR AFRICAN-AMERICAN > 60; GFR NON-AFRICAN AMERICAN > 60
--- NOTE | 2017-08-11 08:39 | CP.PCM.PN ---
Subjective - Date & Time of Evaluation Date of Evaluation: 08/11/17 Time of Evaluation: 07:25 - Subjective Subjective: See and examined by me and Dr. Martinez Reason for consultation and follow up:came in for colonoscopy but found to be in atrial fibrillation with RVR on the monitor.he denied any acute complaints of chest pain, palpitations, lightheadedness, SOB at the time. Patient does not have a history of Afib or any cardiac history. history of seizures. Denies chest pain,denies shortness of breath, no acute distress,lying in bed Objective - Vital Signs/Intake and Output Vital Signs (last 24 hours): Temp Pulse Resp BP Pulse Ox 97.8 F 56 L 19 123/59 L 97 08/11/17 05:58 08/11/17 05:58 08/11/17 05:58 08/11/17 05:58 08/11/17 05:58 Intake and Output: 08/11/17 08/11/17 06:59 18:59 Intake Total 0 Balance 0 - Medications Medications: Current Medications Acetaminophen (Tylenol 325mg Tab) 650 mg PO Q6H PRN PRN Reason: Fever >100.4 F Last Admin: 08/11/17 03:33 Dose: 650 mg Diltiazem HCl (Cardizem) 30 mg PO Q8 [facility] Last Admin: 08/11/17 05:11 Dose: Not Given Home Med (Home Med) 1 unit PO HS [facility] Last Admin: 08/10/17 22:34 Dose: 1 unit Home Med (Home Med) 2 unit PO DAILY [facility] Last Admin: 08/10/17 13:49 Dose: 2 unit Home Med (Home Med) 3 unit PO [facility] Last Admin: 08/10/17 22:35 Dose: 3 unit Lorazepam (Ativan) 2 mg IVP Q2H PRN; Protocol PRN Reason: Seizure activity Multivitamins (Thera Tab) 1 tab PO DAILY [facility] Last Admin: 08/10/17 10:34 Dose: 1 tab Non-Formulary Medication (Clobazam [Onfi]) 10 mg PO BID [facility] Last Admin: 08/10/17 17:57 Dose: Not Given Pantoprazole Sodium (Protonix Ec Tab) 40 mg PO DAILY [facility] Last Admin: 08/10/17 10:34 Dose: 40 mg Topiramate (Topamax) 50 mg PO BID [facility] PRN Reason: Protocol Last Admin: 08/10/17 17:55 Dose: 50 mg - Labs Labs: 08/11/17 07:00 08/11/17 07:00 - Constitutional Appears: Well, No Acute Distress - Head Exam Head Exam: NORMAL INSPECTION - Eye Exam Eye Exam: Normal appearance Pupil Exam: NORMAL ACCOMODATION - ENT Exam ENT Exam: Mucous Membranes Moist - Neck Exam Neck Exam: Normal Inspection - Respiratory Exam Respiratory Exam: Clear to Ausculation Bilateral, NORMAL BREATHING PATTERN - Cardiovascular Exam Cardiovascular Exam: Irregular Rhythm, +S1, +S2 - GI/Abdominal Exam GI & Abdominal Exam: Soft, Normal Bowel Sounds - Extremities Exam Extremities Exam: Normal Capillary Refill - Neurological Exam Neurological Exam: Alert, Awake, Oriented x3 - Psychiatric Exam Psychiatric exam: Normal Affect, Normal Mood Additional comments: mild anxiety - Skin Skin Exam: Dry, Intact, Normal Color, Warm Assessment and Plan - Assessment and Plan (Free Text) Assessment: Impression:61 year old female who came in for colonoscopy but found to be in atrial fibrillation with RVR on the monitor. She denied any acute complaints of chest pain, palpitations, lightheadedness, SOB at the time. Patient does not have a history of Afib or any cardiac history. history of seizures. GRINDER SET UP OPERATOR INTERNAL was called yesterday due to siezure activity, on and EEG was ordered. No further siezure activity last night Plan: ECHO result-Mild aortic regurgitation,Mild mitral regurgitation,mildly impaired systolic function EF 45-50%, normal LV size Dr. Martinez spoke to Dr. Barrera and will continue follow up and work up with him in [facility]. No further cardiac work up to be done here Stable vital signs Continue Cardizem po Continue current treatment plan Anxious to go home, she takes care of her who has dementia Will follow up closely Plan and treatment discussed with Dr. Martinez
[2017-08-11] MEDS: Multivitamin Therapeutic Tab PO SCH (09:37)
[2017-08-11] MEDS: Pantoprazole 40 mg EC Tab PO SCH (09:37)
[2017-08-11] MEDS: ZONISAMIDE 100MG CAPS PO SCH ×2 (09:37→23:34)
[2017-08-11] MEDS: CLOBAZAM 10 MG PO SCH ×2 (09:40→17:42)
--- NOTE | 2017-08-11 12:41 | CP.PCM.PN ---
Subjective - Date & Time of Evaluation Date of Evaluation: 08/11/17 Time of Evaluation: 12:40 - Subjective Subjective: Ms. Puentes was seen and examined at the bedside. She is alert, oriented in all spheres. She denies any headache, dizziness, lightheadedness, blurred vision, diplopia. She states of going for an endoscopy this afternoon. She denies any seizure-like activity since yesterday. She is able to follow simple commands. There was no untoward events overnight. Objective - Vital Signs/Intake and Output Vital Signs (last 24 hours): Temp Pulse Resp BP Pulse Ox 97.8 F 56 L 19 123/59 L 97 08/11/17 05:58 08/11/17 05:58 08/11/17 05:58 08/11/17 05:58 08/11/17 05:58 Intake and Output: 08/11/17 08/11/17 06:59 18:59 Intake Total 0 Balance 0 - Medications Medications: Current Medications Acetaminophen (Tylenol 325mg Tab) 650 mg PO Q6H PRN PRN Reason: Fever >100.4 F Last Admin: 08/11/17 03:33 Dose: 650 mg Acetaminophen (Tylenol 325mg Tab) 650 mg PO Q6H PRN PRN Reason: Headache Diltiazem HCl (Cardizem) 30 mg PO Q8 [facility] Last Admin: 08/11/17 05:11 Dose: Not Given Home Med (Home Med) 1 unit PO HS [facility] Last Admin: 08/10/17 22:34 Dose: 1 unit Home Med (Home Med) 2 unit PO DAILY [facility] Last Admin: 08/11/17 09:37 Dose: 2 unit Home Med (Home Med) 3 unit PO HS [facility] Last Admin: 08/10/17 22:35 Dose: 3 unit Potassium Chloride (Potassium Chloride 10 Meq/100 Ml) 10 meq in 100 mls @ 50 mls/hr IVPB ONCE ONE Stop: 08/11/17 13:19 Lorazepam (Ativan) 2 mg IVP Q2H PRN; Protocol PRN Reason: Seizure activity Multivitamins (Thera Tab) 1 tab PO DAILY [facility] Last Admin: 08/11/17 09:37 Dose: 1 tab Non-Formulary Medication (Clobazam [Onfi]) 10 mg PO BID [facility] Last Admin: 08/11/17 09:40 Dose: Not Given Pantoprazole Sodium (Protonix Ec Tab) 40 mg PO DAILY [facility] Last Admin: 08/11/17 09:37 Dose: 40 mg Topiramate (Topamax) 50 mg PO BID [facility] PRN Reason: Protocol Last Admin: 08/11/17 09:36 Dose: 50 mg - Labs Labs: 08/11/17 07:00 08/11/17 07:00 - Constitutional Appears: No Acute Distress - Head Exam Head Exam: NORMAL INSPECTION - Neurological Exam Neurological Exam: Alert, Awake, Oriented x3 Neuro motor strength exam: Left Upper Extremity: 5, Right Upper Extremity: 5, Left Lower Extremity: 5, Right Lower Extremity: 5 Additional comments: She is AOX#, follows commands, Sensation is intact. Assessment and Plan (1) Epilepsy Assessment & Plan: Case discussed with Dr. Mosqueda, continue all current medical regimen including AED. Recommended Dr. Ama Abdalla at [facility] to her, who is a functional epilepsy surgeon. The information of the functional epilepsy surgeon was provided to the patient. Otherwise, we will treat her seizures with Ativan 2-4 mg IV depending on the severity. She will follow up with Dr. Lowery who is her own neurologist. Status: Acute
--- NOTE | 2017-08-11 13:02 | CP.PCM.PN ---
<EnmanuelJarred - Last Filed: 08/11/17 13:22> Subjective - Date & Time of Evaluation Date of Evaluation: 08/11/17 Time of Evaluation: 12:54 - Subjective Subjective: Medicine progress note: Dr. Frances Parker Patient seen and examined at bedside. NO acute events overnight. Patient is doing well, no complaints. 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 Objective - Vital Signs/Intake and Output Vital Signs (last 24 hours): Temp Pulse Resp BP Pulse Ox 97.8 F 56 L 19 123/59 L 97 08/11/17 05:58 08/11/17 05:58 08/11/17 05:58 08/11/17 05:58 08/11/17 05:58 Intake and Output: 08/11/17 08/11/17 06:59 18:59 Intake Total 0 Balance 0 - Medications Medications: Current Medications Acetaminophen (Tylenol 325mg Tab) 650 mg PO Q6H PRN PRN Reason: Fever >100.4 F Last Admin: 08/11/17 03:33 Dose: 650 mg Acetaminophen (Tylenol 325mg Tab) 650 mg PO Q6H PRN PRN Reason: Headache Diltiazem HCl (Cardizem) 30 mg PO Q8 [facility] Last Admin: 08/11/17 05:11 Dose: Not Given Home Med (Home Med) 1 unit PO [facility] Last Admin: 08/10/17 22:34 Dose: 1 unit Home Med (Home Med) 2 unit PO DAILY [facility] Last Admin: 08/11/17 09:37 Dose: 2 unit Home Med (Home Med) 3 unit PO [facility] Last Admin: 08/10/17 22:35 Dose: 3 unit Potassium Chloride (Potassium Chloride 10 Meq/100 Ml) 10 meq in 100 mls @ 50 mls/hr IVPB ONCE ONE Stop: 08/11/17 13:19 Lorazepam (Ativan) 2 mg IVP Q2H PRN; Protocol PRN Reason: Seizure activity Multivitamins (Thera Tab) 1 tab PO DAILY [facility] Last Admin: 08/11/17 09:37 Dose: 1 tab Non-Formulary Medication (Clobazam [Onfi]) 10 mg PO BID [facility] Last Admin: 08/11/17 09:40 Dose: Not Given Pantoprazole Sodium (Protonix Ec Tab) 40 mg PO DAILY [facility] Last Admin: 08/11/17 09:37 Dose: 40 mg Topiramate (Topamax) 50 mg PO BID [facility] PRN Reason: Protocol Last Admin: 08/11/17 09:36 Dose: 50 mg - Labs Labs: 08/11/17 07:00 08/11/17 07:00 - Constitutional Appears: Well - Head Exam Head Exam: ATRAUMATIC, NORMAL INSPECTION, NORMOCEPHALIC - Eye Exam Eye Exam: EOMI, Normal appearance, PERRL Pupil Exam: NORMAL ACCOMODATION, PERRL - ENT Exam ENT Exam: Mucous Membranes Moist, Normal Exam - Neck Exam Neck Exam: Full ROM, Normal Inspection. absent: Lymphadenopathy - Respiratory Exam Respiratory Exam: Clear to Ausculation Bilateral, NORMAL BREATHING PATTERN - Cardiovascular Exam Cardiovascular Exam: REGULAR RHYTHM, +S1, +S2. absent: Murmur - GI/Abdominal Exam GI & Abdominal Exam: Soft, Normal Bowel Sounds. absent: Tenderness - Extremities Exam Extremities Exam: Full ROM, Normal Capillary Refill, Normal Inspection. absent : Joint Swelling, Pedal Edema - Back Exam Back Exam: NORMAL INSPECTION - Neurological Exam Neurological Exam: Alert, Awake, CN II-XII Intact, Normal Gait, Oriented x3 - Psychiatric Exam Psychiatric exam: Normal Affect, Normal Mood - Skin Skin Exam: Dry, Intact, Normal Color, Warm Assessment and Plan - Assessment and Plan (Free Text) Assessment: 61yo female PMHx seizure disorder presents with new-onset Afib with RVR. Chest pain r/o ACS - Troponin q6h: 3 normal - f/u A1c: 5.6 - lipid panel wnl - hold ASA for GI bleed - Echo: Trace TR; 49.6% EF - Heart Healthy Diet - Cardio Dr. Martinez on board New-onset Afib with RVR - [id number] score 1 - HASBLED score 2 - Cardizem 30mg po q8h as per cardio reccs - no anticoagulation in light of GI bleed - f/u TSH, free T4 - f/u Echo - Cardio Dr. Martinez on board - Patient can be started on ASA after Endoscopy tomorrow, per Dr. Martinez, as long as normal GI bleed - patient has hx of GERD and polyps and hemorrhoids in the past - no jacob blood noted and H&H is stable on admission - Daily H&H - Hold anticoagulation due to risk of worsening bleed - GI on consult: Dr. Marie - Patient set up for endoscopy tomorrow R calf pain - No DVT, SCD's placed Hx of fever - Resolved on admission - CXR: NAD - f/u procalcitonin: negative - f/u blood cultures x2, UA, urine culture, rapid flu - Tylenol prn for fever Hx of seizure disorder - Restarted on home meds Clobazam 10mg po bid Vimpat 100mg po hs Zonisamide 200mg po amhs - Ativan 1mg q2h prn seizures - Seizure and fall precautions - 60g protein in diet <Fer Parker B - Last Filed: 08/12/17 18:21> Objective - Vital Signs/Intake and Output Vital Signs (last 24 hours): Temp Pulse Resp BP Pulse Ox 98.4 F 65 20 119/65 93 L 08/12/17 06:00 08/12/17 06:00 08/12/17 06:00 08/12/17 06:00 08/12/17 06:00 Intake and Output: 08/12/17 08/12/17 06:59 18:59 Intake Total 360 Output Total 400 Balance -40 - Labs Labs: 08/12/17 06:20 08/12/17 06:20 Attending/Attestation - Attestation I have personally seen and examined this patient.: Yes I have fully participated in the care of the patient.: Yes I have reviewed all pertinent clinical information, including history, physical exam and plan: Yes Notes (Text): I have seen and examined the patient at bedside. Agree with the above note with the following additions/ exceptions: Briefly this is 61 year old female with history of uncontrolled seizures, GERD, migraine, headaches, panic attack, cholecystectomy, appendectomy who was scheduled for colonoscopy 1 day ago and in SDS was found to have new onset Afib with RVR. Patient denies any chest pain , sob, palpitation or any other complaints. Serial trop is negative. Echo result pending. CHADSVASC score is 1. HASBLED is 2. Patient reports bleeding in stools for the past few days. Will hold anticoagulation for now. Patient is scheduled for scope today. Cardiology eval appreciated. Will continue cardizem PO. Procal negative. Blood cultures negative. Upon discharge patient will follow up with Dr Fowler. Dr Fer Parker
[2017-08-11] MEDS ORDERED: Propofol 10 mg/ml Inj (20 ML) ONE ×2 (13:15)
--- NOTE | 2017-08-11 15:29 | CP.PCM.DIS ---
Provider - Provider Date of Admission: 08/09/17 11:14 Attending physician: Fer Parker MD Primary care physician: Halley Fowler MD Consults: Dr. Mosqueda: Neurology Dr. Douglas: GI Dr. Martinez: Cardiology Time Spent in preparation of Discharge (in minutes): 45 Hospital Course - Lab Results Lab Results: Micro Results 08/09/17 15:03 Blood-Venous Blood Culture - Preliminary NO GROWTH AFTER 24 HOURS 08/09/17 14:00 Blood-Venous Blood Culture - Preliminary NO GROWTH AFTER 24 HOURS Most Recent Lab Values WBC 8.9 10^3/ul (4.5-11.0) 08/11/17 07:00 RBC 4.88 10^6/uL (3.5-6.1) 08/11/17 07:00 Hgb 14.6 g/dL (12.0-16.0) 08/11/17 07:00 Hct 43.3 % (36.0-48.0) 08/11/17 07:00 MCV 88.7 fl (80.0-105.0) 08/11/17 07:00 MCH 29.9 pg (25.0-35.0) 08/11/17 07:00 MCHC 33.7 g/dl (31.0-37.0) 08/11/17 07:00 RDW 13.0 % (11.5-14.5) 08/11/17 07:00 Plt Count 308 10^3/uL (120.0-450.0) 08/11/17 07:00 MPV 9.5 fl (7.0-11.0) 08/11/17 07:00 Gran % 61.0 % (50.0-68.0) 08/11/17 07:00 Lymph % (Auto) 30.3 % (22.0-35.0) 08/11/17 07:00 [place] % (Auto) 6.3 % (1.0-6.0) H 08/11/17 07:00 Eos % (Auto) 2.2 % (1.5-5.0) 08/11/17 07:00 Baso % (Auto) 0.2 % (0.0-3.0) 08/11/17 07:00 Gran # 5.42 (1.4-6.5) 08/11/17 07:00 Lymph # (Auto) 2.7 (1.2-3.4) 08/11/17 07:00 [place] # (Auto) 0.6 (0.1-0.6) 08/11/17 07:00 Eos # (Auto) 0.2 (0.0-0.7) 08/11/17 07:00 Baso # (Auto) 0.02 K/mm3 (0.0-2.0) 08/11/17 07:00 Sodium 139 mmol/L (132-148) 08/11/17 07:00 Potassium 3.4 mmol/L (3.6-5.0) L 08/11/17 07:00 Chloride 109 mmol/L (98-107) H 08/11/17 07:00 Carbon Dioxide 19 mmol/L (21-33) L 08/11/17 07:00 Anion Gap 14 (10-20) 08/11/17 07:00 BUN 15 mg/dL (7-21) 08/11/17 07:00 Creatinine 0.9 mg/dl (0.7-1.2) 08/11/17 07:00 Est GFR ( Amer) > 60 08/11/17 07:00 Est GFR (Non-Af Amer) > 60 08/11/17 07:00 POC Glucose (mg/dL) 125 mg/dL (65-110) H 08/10/17 09:47 Random Glucose 91 mg/dL (70-110) 08/11/17 07:00 Hemoglobin A1c 5.6 % (4.2-6.5) 08/10/17 06:45 Calcium 9.4 mg/dL (8.4-10.5) 08/11/17 07:00 Phosphorus 3.0 mg/dL (2.5-4.5) 08/10/17 06:45 Magnesium 2.2 mg/dL (1.7-2.2) 08/10/17 06:45 Total Bilirubin 0.3 mg/dL (0.2-1.3) 08/11/17 07:00 AST 24 U/L (14-36) 08/11/17 07:00 ALT 23 U/L (7-56) 08/11/17 07:00 Alkaline Phosphatase 92 U/L (38-126) 08/11/17 07:00 Lactate Dehydrogenase 637 U/L (333-699) 08/09/17 09:30 Total Creatine Kinase 146 U/L (35-230) 08/09/17 09:30 Troponin I < 0.01 ng/mL 08/09/17 20:54 C-React Prot High Sens 5.63 mg/L (1.00-3.00) H 08/09/17 15:51 Total Protein 6.6 g/dL (5.8-8.3) 08/11/17 07:00 Albumin 3.7 g/dL (3.0-4.8) 08/11/17 07:00 Globulin 2.9 gm/dL 08/11/17 07:00 Albumin/Globulin Ratio 1.3 (1.1-1.8) 08/11/17 07:00 Triglycerides 83 mg/dL (35-160) 08/10/17 06:45 Cholesterol 169 mg/dL (130-200) 08/10/17 06:45 LDL Cholesterol Direct 93 mg/dL (0-129) 08/10/17 06:45 HDL Cholesterol 49 mg/dL (29-60) 08/10/17 06:45 Procalcitonin < 0.05 NG/ML (0.19-0.49) L 08/09/17 15:51 Thyroxine (T4) 8.9 ug/dL (5.5-11.0) 08/10/17 06:45 TSH 3rd Generation 1.63 mIU/mL (0.46-4.68) 08/10/17 06:45 Prolactin 21.2 ng/mL (3.0-18.9) H 08/10/17 10:15 Urine Color Yellow (YELLOW) 08/10/17 10:10 Urine Appearance Clear (CLEAR) 08/10/17 10:10 Urine pH 6.0 (4.7-8.0) 08/10/17 10:10 Ur Specific Cunningham >= 1.030 (1.005-1.035) 08/10/17 10:10 Urine Protein Negative mg/dL (<30 mg/dL) 08/10/17 10:10 Urine Glucose (UA) Negative mg/dL (NEGATIVE) 08/10/17 10:10 Urine Ketones >=80 mg/dL (NEGATIVE) 08/10/17 10:10 Urine Blood Negative (NEGATIVE) 08/10/17 10:10 Urine Nitrate Negative (NEGATIVE) 08/10/17 10:10 Urine Bilirubin Small (NEGATIVE) H 08/10/17 10:10 Urine Urobilinogen 0.2 E.U./dL (<1 E.U./dL) 08/10/17 10:10 Ur Leukocyte Esterase Negative Kishore/uL (NEGATIVE) 08/10/17 10:10 Influenza Typ A,B (EIA) Negative for flu a/b (NEGATIVE) 08/09/17 13:43 - Hospital Course Hospital Course: HPI on presentation: 61F with PMHx of seizure disorder presented to emergency department from the endoscopy suite for Afib with RVR. Patient states she was scheduled for a colonoscopy and EGD today when she was found to be in atrial fibrillation with RVR on the monitor. She denied any acute complaints of chest pain, palpitations , lightheadedness, SOB at the time. Patient does not have a history of Afib or any cardiac history. She reports she had a high temp of 102F the day earlier with associated chills and diaphoresis for which she took ASA and it resolved. Patient also reports a single bloody BM that occurred 2 days ago. Stool was loose with bright red blood and maroon stool. Her last colonoscopy was 2 years ago and she has a hx of colon polyps and hemorrhoids as well as severe symptomatic GERD. No personal hx of colon cancer or esophageal cancer. Patient also disclosed a history of frequent seizures and takes several seizure medications. She was enrolled in a blinded drug trial where she took an unlabled seizure medication for 6 weeks. She stopped this medication 3 weeks ago because it did not give her any symptomatic relief. She has on average 2 seizures per week. Her seizures occur during sleep and are usually witnessed by her . She takes 325 mg of aspirin following seizures and states she is compliant with her seizure medications. In terms of her A-Fib, patient was found to have CHADSVASC score of 1, so ASA was initiated pending clearance from GI. 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 Dr. Acevedo was consulted, he stated that since patient has 2 seizures a week, a CT Head would be warranted but no further work up was needed. She was asked to follow up with the epileptologist, Dr. Ama Abdalla, as well as her own neurologist, Dr. Lowery Patient also had her EGD while she was here, and was deemed stable for discharge from their standpoint. Discharge Exam - Head Exam Head Exam: ATRAUMATIC, NORMAL INSPECTION, NORMOCEPHALIC - Eye Exam Eye Exam: EOMI, Normal appearance, PERRL Pupil Exam: NORMAL ACCOMODATION, PERRL - GI/Abdominal Exam GI & Abdominal Exam: Normal Bowel Sounds - Neurological Exam Neurological exam: Alert, CN II-XII Intact, Normal Gait, Oriented x3, Reflexes Normal - Psychiatric Exam Psychiatric exam: Normal Affect, Normal Mood - Skin Skin Exam: Dry, Intact, Normal Color, Warm Discharge Plan - Discharge Medications Prescriptions: Aspirin 81 mg PO DAILY #60 tab.chew - Follow Up Plan Condition: STABLE Disposition: HOME/ ROUTINE Patient education suggested?: Yes Additional Instructions: Please follow up with Dr. Ama Abdalla at [facility], the epileptologist Please follow up with your neurologist, Dr. Lowery Please make sure to take your Aspirin 81 daily, as prescribed Referrals: Halley Fowler MD [Primary Care Provider] - Follow up with primary
[2017-08-11] MEDS ORDERED: Potassium Chloride 20 mEq ER Tab PO ONE ×2 (17:05→19:00)
[2017-08-11] MEDS: Sodium Chloride 0.9% 1,000 ML IV SCH (19:13)
[2017-08-11 19:45] VITALS: RESP 20
[2017-08-11] MEDS: LACOSAMIDE 100 MG PO SCH (23:33)
[2017-08-12] MEDS: Sodium Chloride 0.9% 1,000 ML IV SCH ×2 (01:54→05:30)
[2017-08-12 05:43] VITALS: BP 119/65
--- NOTE | 2017-08-12 06:01 | CP.PCM.PN ---
Subjective - Date & Time of Evaluation Date of Evaluation: 08/12/17 Time of Evaluation: 07:10 - Subjective Subjective: Seen and examined by me and Dr. Gagnon Reason for consult and follow up: 61 year old female who came in for colonoscopy but found to be in atrial fibrillation with RVR on the monitor. She denied any acute complaints of chest pain, palpitations, lightheadedness, SOB at the time. Patient does not have a history of Afib or any cardiac history. history of seizures. Subjective: denies chest pain, denies shortness of breath, no episode of seizure last night, wanted to go home Objective - Vital Signs/Intake and Output Vital Signs (last 24 hours): Temp Pulse Resp BP Pulse Ox 97.7 F 62 20 119/65 94 L 08/12/17 00:01 08/12/17 05:38 08/12/17 00:01 08/12/17 05:38 08/12/17 00:01 - Medications Medications: Current Medications Acetaminophen (Tylenol 325mg Tab) 650 mg PO Q6H PRN PRN Reason: Fever >100.4 F Last Admin: 08/11/17 03:33 Dose: 650 mg Acetaminophen (Tylenol 325mg Tab) 650 mg PO Q6H PRN PRN Reason: Headache Diltiazem HCl (Cardizem) 30 mg PO Q8 [facility] Last Admin: 08/12/17 05:38 Dose: 30 mg Home Med (Home Med) 1 unit PO HS [facility] Last Admin: 08/11/17 23:33 Dose: 1 unit Home Med (Home Med) 2 unit PO DAILY [facility] Last Admin: 08/11/17 09:37 Dose: 2 unit Home Med (Home Med) 3 unit PO HS [facility] Last Admin: 08/11/17 23:34 Dose: 3 unit Sodium Chloride (Sodium Chloride 0.9%) 1,000 mls @ 100 mls/hr IV .Q10H [facility] Last Admin: 08/12/17 05:30 Dose: 100 mls/hr Lorazepam (Ativan) 2 mg IVP Q2H PRN; Protocol PRN Reason: Seizure activity Last Admin: 08/11/17 19:08 Dose: 2 mg Multivitamins (Thera Tab) 1 tab PO DAILY [facility] Last Admin: 08/11/17 09:37 Dose: 1 tab Non-Formulary Medication (Clobazam [Onfi]) 10 mg PO BID [facility] Last Admin: 08/11/17 17:42 Dose: Not Given Pantoprazole Sodium (Protonix Ec Tab) 40 mg PO DAILY [facility] Last Admin: 08/11/17 09:37 Dose: 40 mg Topiramate (Topamax) 50 mg PO BID [facility] PRN Reason: Protocol Last Admin: 08/11/17 23:59 Dose: Not Given - Labs Labs: 08/11/17 07:00 08/11/17 07:00 - Constitutional Appears: No Acute Distress - Head Exam Head Exam: NORMAL INSPECTION, NORMOCEPHALIC - Eye Exam Eye Exam: Normal appearance Pupil Exam: NORMAL ACCOMODATION - ENT Exam ENT Exam: Mucous Membranes Moist, Normal Exam - Respiratory Exam Respiratory Exam: Clear to Ausculation Bilateral, NORMAL BREATHING PATTERN - Cardiovascular Exam Cardiovascular Exam: REGULAR RHYTHM, +S1, +S2 - GI/Abdominal Exam GI & Abdominal Exam: Soft, Normal Bowel Sounds - Extremities Exam Extremities Exam: Normal Capillary Refill - Neurological Exam Neurological Exam: Alert, Awake, Oriented x3 - Psychiatric Exam Psychiatric exam: Normal Affect, Normal Mood - Skin Skin Exam: Dry, Intact, Normal Color, Warm Assessment and Plan - Assessment and Plan (Free Text) Assessment: Impression:61 year old female who came in for colonoscopy but found to be in atrial fibrillation with RVR on the monitor. She denied any acute complaints of chest pain, palpitations, lightheadedness, SOB at the time. Patient does not have a history of Afib or any cardiac history. history of seizures.post colonoscopy 08/11/17 Plan: Had colonoscopy yesterday- esophagitis,gastritis, 5 cm hiatal hernia Cardiac status stable Will follow up with Dr. 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 Gagnon
[2017-08-12 06:30] VITALS: PULSE 65; TEMP 98.4; O2SAT 93
[2017-08-12 06:50] LABS: BASO # 0.03 K/mm3 (0.0-2.0); BASO % 0.3 % (0.0-3.0); EOS # 0.1 (0.0-0.7); EOS % 1.2 % (1.5-5.0); GRAN # 5.99 (1.4-6.5); GRAN % 65.2 % (50.0-68.0); HEMOGLOBIN 13.2 g/dL (12.0-16.0); LYMPH # 2.4 (1.2-3.4); LYMPH % 25.9 % (22.0-35.0); MEAN CELL VOLUME 89.4 fl (80.0-105.0); MEAN CORPUSCULAR HEMOGLOBIN 29.3 pg (25.0-35.0); MEAN CORPUSCULAR HGB CONC 32.8 g/dl (31.0-37.0); MEAN PLATELET VOLUME 9.5 fl (7.0-11.0); MONO # 0.7 (0.1-0.6); MONO % 7.4 % (1.0-6.0); RBC 4.51 10^6/uL (3.5-6.1); WHITE BLOOD COUNT 9.2 10^3/ul (4.5-11.0)
[2017-08-12 07:43] LABS: ALB/GLOB RATIO 1.2 (1.1-1.8); ALBUMIN 3.2 g/dL (3.0-4.8); ALT/SGPT 24 U/L (7-56); AST/SGOT 21 U/L (14-36); BLOOD UREA NITROGEN 9 mg/dL (7-21); CALCIUM 9.1 mg/dL (8.4-10.5); GFR AFRICAN-AMERICAN > 60; GFR NON-AFRICAN AMERICAN > 60
--- NOTE | 2017-08-12 09:25 | PN ---
DATE: 08/11/[address] Barrera, [facility], mentioned to him, once the patient's GI issue has been resolved, patient can be discharged and follow with Dr. Barrera. If patient has recurrent SVT, then he will arrange EP with his partner Dr. Rabago. Discussed with the patient in length after endoscopy in PACU unit. So once the GI workup is done and patient is stable, can be discharged. No further cardiac workup is done from the Cardiology point of view. Upon discharge, patient will be followed by Dr. Barrera and Dr. Rabago as mentioned above. So again, patient would be cleared from Cardiology point of view. Thank you, Dr. Lorenzo for providing us the opportunity in taking care of patient Tequila Puentes. Dillon Martinez MD
[2017-08-12] MEDS: Pantoprazole 40 mg EC Tab PO SCH (09:41)
[2017-08-12] MEDS: Multivitamin Therapeutic Tab PO SCH (09:42)
[2017-08-12] MEDS: ZONISAMIDE 100MG CAPS PO SCH (09:42)
--- NOTE | 2017-08-12 11:56 | CP.PCM.PN ---
Subjective - Date & Time of Evaluation Date of Evaluation: 08/12/17 Time of Evaluation: 08:00 - Subjective Subjective: PGY4 GI Follow-up Pt seen and examined bedside Seizure activity overnight denies any rectal bleeding tolerating diet ROS: 12 point ROS conducted, neg other than above Objective - Vital Signs/Intake and Output Vital Signs (last 24 hours): Temp Pulse Resp BP Pulse Ox 98.4 F 65 20 119/65 93 L 08/12/17 06:00 08/12/17 06:00 08/12/17 06:00 08/12/17 06:00 08/12/17 06:00 Intake and Output: 08/12/17 08/12/17 06:59 18:59 Intake Total 360 Output Total 400 Balance -40 - Medications Medications: Current Medications Acetaminophen (Tylenol 325mg Tab) 650 mg PO Q6H PRN PRN Reason: Fever >100.4 F Last Admin: 08/11/17 03:33 Dose: 650 mg Acetaminophen (Tylenol 325mg Tab) 650 mg PO Q6H PRN PRN Reason: Headache Diltiazem HCl (Cardizem) 30 mg PO Q8 [facility] Last Admin: 08/12/17 05:38 Dose: 30 mg Home Med (Home Med) 1 unit PO HS [facility] Last Admin: 08/11/17 23:33 Dose: 1 unit Home Med (Home Med) 2 unit PO DAILY [facility] Last Admin: 08/12/17 09:42 Dose: 2 unit Home Med (Home Med) 3 unit PO HS [facility] Last Admin: 08/11/17 23:34 Dose: 3 unit Sodium Chloride (Sodium Chloride 0.9%) 1,000 mls @ 100 mls/hr IV .Q10H [facility] Last Admin: 08/12/17 05:30 Dose: 100 mls/hr Lorazepam (Ativan) 2 mg IVP Q2H PRN; Protocol PRN Reason: Seizure activity Last Admin: 08/11/17 19:08 Dose: 2 mg Multivitamins (Thera Tab) 1 tab PO DAILY [facility] Last Admin: 08/12/17 09:42 Dose: 1 tab Non-Formulary Medication (Clobazam [Onfi]) 10 mg PO BID [facility] Last Admin: 08/11/17 17:42 Dose: Not Given Pantoprazole Sodium (Protonix Ec Tab) 40 mg PO DAILY [facility] Last Admin: 08/12/17 09:41 Dose: 40 mg Topiramate (Topamax) 50 mg PO BID [facility] PRN Reason: Protocol Last Admin: 08/12/17 09:41 Dose: 50 mg - Labs Labs: 08/12/17 06:20 08/12/17 06:20 - Constitutional Appears: Well, No Acute Distress - Head Exam Head Exam: ATRAUMATIC, NORMOCEPHALIC - Eye Exam Eye Exam: Normal appearance - ENT Exam ENT Exam: Mucous Membranes Moist, Normal Exam - Neck Exam Neck Exam: Normal Inspection - Respiratory Exam Respiratory Exam: Clear to Ausculation Bilateral, NORMAL BREATHING PATTERN. absent: Rales, Rhonchi, Wheezes, Respiratory Distress - Cardiovascular Exam Cardiovascular Exam: Irregular Rhythm - GI/Abdominal Exam GI & Abdominal Exam: Soft, Normal Bowel Sounds. absent: Guarding, Rigid, Tenderness, Organomegaly - Extremities Exam Extremities Exam: absent: Joint Swelling, Pedal Edema - Neurological Exam Neurological Exam: Alert, Awake, Oriented x3 - Psychiatric Exam Psychiatric exam: Normal Affect, Normal Mood - Skin Skin Exam: Dry, Intact, Normal Color, Warm Assessment and Plan - Assessment and Plan (Free Text) Assessment: This a 61 yr old F with seizure disorder and new onset A fib with RVR when she presented for outpatient EGD/ colonoscopy for GI bleeding. S/P EGD and colonoscopy 08/11/17 revealed Grade C esophagitis and colon was filled with liquid stool but no obvious lesions Grade C esophaphagitis New onset A-fib seizures Plan: - will need to repeat colonoscopy in 6months to 1 year due to poor prep - continue PPI BID, repeat EGD in 3months - follow-up with Dr. Douglas as an oupt - cleared for anticoag and antiplatlet from GI Standpoint - okay to d/c from GI standpoint - rest of care as per primary team, neurology and cardiology D/W Dr. Marie
--- NOTE | 2017-08-12 12:24 | CP.PCM.PN ---
Subjective - Date & Time of Evaluation Date of Evaluation: 08/12/17 Time of Evaluation: 12:24 - Subjective Subjective: Ms. Puentes was seen and examined at the bedside. She is alert, oriented in all spheres. She denies any headache, dizziness, lightheadedness, blurred vision, diplopia. She states of going for an endoscopy this afternoon. She denies any seizure-like activity since yesterday. She is able to follow simple commands. She had episode of disorientation yesterday evening with no signs of seizure activity noted. There was no untoward events overnight. Objective - Vital Signs/Intake and Output Vital Signs (last 24 hours): Temp Pulse Resp BP Pulse Ox 98.4 F 65 20 119/65 93 L 08/12/17 06:00 08/12/17 06:00 08/12/17 06:00 08/12/17 06:00 08/12/17 06:00 Intake and Output: 08/12/17 08/12/17 06:59 18:59 Intake Total 360 Output Total 400 Balance -40 - Medications Medications: Current Medications Acetaminophen (Tylenol 325mg Tab) 650 mg PO Q6H PRN PRN Reason: Fever >100.4 F Last Admin: 08/11/17 03:33 Dose: 650 mg Acetaminophen (Tylenol 325mg Tab) 650 mg PO Q6H PRN PRN Reason: Headache Diltiazem HCl (Cardizem) 30 mg PO Q8 [facility] Last Admin: 08/12/17 05:38 Dose: 30 mg Home Med (Home Med) 1 unit PO HS [facility] Last Admin: 08/11/17 23:33 Dose: 1 unit Home Med (Home Med) 2 unit PO DAILY [facility] Last Admin: 08/12/17 09:42 Dose: 2 unit Home Med (Home Med) 3 unit PO HS [facility] Last Admin: 08/11/17 23:34 Dose: 3 unit Sodium Chloride (Sodium Chloride 0.9%) 1,000 mls @ 100 mls/hr IV .Q10H [facility] Last Admin: 08/12/17 05:30 Dose: 100 mls/hr Lorazepam (Ativan) 2 mg IVP Q2H PRN; Protocol PRN Reason: Seizure activity Last Admin: 08/11/17 19:08 Dose: 2 mg Multivitamins (Thera Tab) 1 tab PO DAILY [facility] Last Admin: 08/12/17 09:42 Dose: 1 tab Non-Formulary Medication (Clobazam [Onfi]) 10 mg PO BID [facility] Last Admin: 08/11/17 17:42 Dose: Not Given Pantoprazole Sodium (Protonix Ec Tab) 40 mg PO DAILY [facility] Last Admin: 08/12/17 09:41 Dose: 40 mg Topiramate (Topamax) 50 mg PO BID [facility] PRN Reason: Protocol Last Admin: 08/12/17 09:41 Dose: 50 mg - Labs Labs: 08/12/17 06:20 08/12/17 06:20 - Constitutional Appears: No Acute Distress - Head Exam Head Exam: NORMAL INSPECTION - Neurological Exam Neurological Exam: Alert, Awake, Oriented x3 Neuro motor strength exam: Left Upper Extremity: 5, Right Upper Extremity: 5, Left Lower Extremity: 5, Right Lower Extremity: 5 Additional comments: Neurological unchanged from previous examination. Assessment and Plan (1) Epilepsy Assessment & Plan: Case discussed with Dr. Mosqueda, continue all current medical regimen including AED. Recommended Dr. Ama Abdalla at [facility] to her, who is a functional epilepsy surgeon. The information of the functional epilepsy surgeon was provided to the patient. Otherwise, we will treat her seizures with Ativan 2-4 mg IV depending on the severity. She will follow up with Dr. Lowery who is her own neurologist. Status: Acute
--- NOTE | 2017-08-12 13:09 | CP.PCM.DIS ---
Provider - Provider Date of Admission: 08/09/17 11:14 Attending physician: Fer Parker MD Primary care physician: Halley Fowler MD Hospital Course - Lab Results Lab Results: Micro Results 08/09/17 15:03 Blood-Venous Blood Culture - Preliminary NO GROWTH AFTER 48 HOURS 08/09/17 14:00 Blood-Venous Blood Culture - Preliminary NO GROWTH AFTER 48 HOURS Most Recent Lab Values WBC 9.2 10^3/ul (4.5-11.0) 08/12/17 06:20 RBC 4.51 10^6/uL (3.5-6.1) 08/12/17 06:20 Hgb 13.2 g/dL (12.0-16.0) 08/12/17 06:20 Hct 40.3 % (36.0-48.0) 08/12/17 06:20 MCV 89.4 fl (80.0-105.0) 08/12/17 06:20 MCH 29.3 pg (25.0-35.0) 08/12/17 06:20 MCHC 32.8 g/dl (31.0-37.0) 08/12/17 06:20 RDW 13.0 % (11.5-14.5) 08/12/17 06:20 Plt Count 302 10^3/uL (120.0-450.0) 08/12/17 06:20 MPV 9.5 fl (7.0-11.0) 08/12/17 06:20 Gran % 65.2 % (50.0-68.0) 08/12/17 06:20 Lymph % (Auto) 25.9 % (22.0-35.0) 08/12/17 06:20 [place] % (Auto) 7.4 % (1.0-6.0) H 08/12/17 06:20 Eos % (Auto) 1.2 % (1.5-5.0) L 08/12/17 06:20 Baso % (Auto) 0.3 % (0.0-3.0) 08/12/17 06:20 Gran # 5.99 (1.4-6.5) 08/12/17 06:20 Lymph # (Auto) 2.4 (1.2-3.4) 08/12/17 06:20 [place] # (Auto) 0.7 (0.1-0.6) H 08/12/17 06:20 Eos # (Auto) 0.1 (0.0-0.7) 08/12/17 06:20 Baso # (Auto) 0.03 K/mm3 (0.0-2.0) 08/12/17 06:20 Sodium 141 mmol/L (132-148) 08/12/17 06:20 Potassium 3.9 mmol/L (3.6-5.0) 08/12/17 06:20 Chloride 113 mmol/L (98-107) H 08/12/17 06:20 Carbon Dioxide 21 mmol/L (21-33) 08/12/17 06:20 Anion Gap 12 (10-20) 08/12/17 06:20 BUN 9 mg/dL (7-21) 08/12/17 06:20 Creatinine 0.8 mg/dl (0.7-1.2) 08/12/17 06:20 Est GFR ( Amer) > 60 08/12/17 06:20 Est GFR (Non-Af Amer) > 60 08/12/17 06:20 POC Glucose (mg/dL) 125 mg/dL (65-110) H 08/10/17 09:47 Random Glucose 100 mg/dL (70-110) 08/12/17 06:20 Hemoglobin A1c 5.6 % (4.2-6.5) 08/10/17 06:45 Calcium 9.1 mg/dL (8.4-10.5) 08/12/17 06:20 Phosphorus 3.0 mg/dL (2.5-4.5) 08/10/17 06:45 Magnesium 2.2 mg/dL (1.7-2.2) 08/10/17 06:45 Total Bilirubin 0.2 mg/dL (0.2-1.3) 08/12/17 06:20 AST 21 U/L (14-36) 08/12/17 06:20 ALT 24 U/L (7-56) 08/12/17 06:20 Alkaline Phosphatase 77 U/L (38-126) 08/12/17 06:20 Lactate Dehydrogenase 637 U/L (333-699) 08/09/17 09:30 Total Creatine Kinase 146 U/L (35-230) 08/09/17 09:30 Troponin I < 0.01 ng/mL 08/09/17 20:54 C-React Prot High Sens 5.63 mg/L (1.00-3.00) H 08/09/17 15:51 Total Protein 5.8 g/dL (5.8-8.3) 08/12/17 06:20 Albumin 3.2 g/dL (3.0-4.8) 08/12/17 06:20 Globulin 2.7 gm/dL 08/12/17 06:20 Albumin/Globulin Ratio 1.2 (1.1-1.8) 08/12/17 06:20 Triglycerides 83 mg/dL (35-160) 08/10/17 06:45 Cholesterol 169 mg/dL (130-200) 08/10/17 06:45 LDL Cholesterol Direct 93 mg/dL (0-129) 08/10/17 06:45 HDL Cholesterol 49 mg/dL (29-60) 08/10/17 06:45 Procalcitonin < 0.05 NG/ML (0.19-0.49) L 08/09/17 15:51 Thyroxine (T4) 8.9 ug/dL (5.5-11.0) 08/10/17 06:45 TSH 3rd Generation 1.63 mIU/mL (0.46-4.68) 08/10/17 06:45 Prolactin 21.2 ng/mL (3.0-18.9) H 08/10/17 10:15 Urine Color Yellow (YELLOW) 08/10/17 10:10 Urine Appearance Clear (CLEAR) 08/10/17 10:10 Urine pH 6.0 (4.7-8.0) 08/10/17 10:10 Ur Specific [place] >= 1.030 (1.005-1.035) 08/10/17 10:10 Urine Protein Negative mg/dL (<30 mg/dL) 08/10/17 10:10 Urine Glucose (UA) Negative mg/dL (NEGATIVE) 08/10/17 10:10 Urine Ketones >=80 mg/dL (NEGATIVE) 08/10/17 10:10 Urine Blood Negative (NEGATIVE) 08/10/17 10:10 Urine Nitrate Negative (NEGATIVE) 08/10/17 10:10 Urine Bilirubin Small (NEGATIVE) H 08/10/17 10:10 Urine Urobilinogen 0.2 E.U./dL (<1 E.U./dL) 08/10/17 10:10 Ur Leukocyte Esterase Negative Kishore/uL (NEGATIVE) 08/10/17 10:10 Influenza Typ A,B (EIA) Negative for flu a/b (NEGATIVE) 08/09/17 13:43 Discharge Exam - Head Exam Head Exam: NORMAL INSPECTION Discharge Plan - Discharge Medications Prescriptions: Aspirin 81 mg PO DAILY #60 tab.chew - Follow Up Plan Condition: STABLE Disposition: HOME/ ROUTINE Instructions: Atrial Fibrillation, Chest Pain, Seizures Additional Instructions: Please follow up with Dr. Ama Abdalla at [facility], the epileptologist Contact number: [phone] Address: [address] [place] [address] Please follow up with your neurologist, Dr. Lowery Please make sure to take your Aspirin 81 daily, as prescribed Referrals: Halley Fowler MD [Primary Care Provider] - Follow up with primary
== END 2017-08-12 14:44 | disposition home or self-care (01) | DRG 138 ==
LOC: ED 08:52 → ERH 11:14 → 3RSO 19:07
PROVIDERS: ADMIT Internal Medicine; ATTEND Hospitalist
PROC: 0DBM8ZX Excision of Descending Colon, Via Natural or Artificial Opening Endoscopic, Diagnostic (ICD-10-PCS; 2017-08-11)
PROC: 0DBN8ZX Excision of Sigmoid Colon, Via Natural or Artificial Opening Endoscopic, Diagnostic (ICD-10-PCS; 2017-08-11)
PROC: 0DB98ZX Excision of Duodenum, Via Natural or Artificial Opening Endoscopic, Diagnostic (ICD-10-PCS; principal; 2017-08-11 12:30)
PROC: 0DB68ZX Excision of Stomach, Via Natural or Artificial Opening Endoscopic, Diagnostic (ICD-10-PCS; 2017-08-11 12:30)
DX: I48.0 Paroxysmal atrial fibrillation (principal); G40.919 Epilepsy, unspecified, intractable, without status epilepticus; I08.3 Combined rheumatic disorders of mitral, aortic and tricuspid valves; K29.70 Gastritis, unspecified, without bleeding; K44.9 Diaphragmatic hernia without obstruction or gangrene; K20.9 Esophagitis, unspecified; K21.9 Gastro-esophageal reflux disease without esophagitis; K63.89 Other specified diseases of intestine; I47.1 Supraventricular tachycardia; K64.8 Other hemorrhoids; G43.909 Migraine, unspecified, not intractable, without status migrainosus; M79.661 Pain in right lower leg; F41.0 Panic disorder [episodic paroxysmal anxiety]; M54.30 Sciatica, unspecified side; M54.16 Radiculopathy, lumbar region

== ENCOUNTER 2017-09-06 18:21 | Observation (INO) | payer MEDICAID ==
[2017-09-06 18:21] VITALS: BMI 25.7
[2017-09-06 19:53] LABS: BASO # 0.03 K/mm3 (0.0-2.0); BASO % 0.4 % (0.0-3.0); EOS # 0.5 (0.0-0.7); EOS % 5.6 % (1.5-5.0); GRAN # 4.43 (1.4-6.5); GRAN % 54.1 % (50.0-68.0); HEMOGLOBIN 13.3 g/dL (12.0-16.0); LYMPH # 2.8 (1.2-3.4); LYMPH % 34.6 % (22.0-35.0); MEAN CELL VOLUME 89.1 fl (80.0-105.0); MEAN CORPUSCULAR HEMOGLOBIN 29.7 pg (25.0-35.0); MEAN CORPUSCULAR HGB CONC 33.3 g/dl (31.0-37.0); MONO # 0.4 (0.1-0.6); MONO % 5.3 % (1.0-6.0); RBC 4.48 10^6/uL (3.5-6.1); RED CELL DISTRIBUTION WIDTH 13.4 % (11.5-14.5); WHITE BLOOD COUNT 8.2 10^3/ul (4.5-11.0)
--- NOTE | 2017-09-06 19:55 | ED PDOC ---
Arrival/HPI - General Chief Complaint: Chest Pain Time Seen by Provider: 09/06/17 18:23 Historian: Patient - History of Present Illness Narrative History of Present Illness (Text): Patient is a 62 year old female with a past medical history of epilepsy presenting to the emergency room with a chief complaint of chest pain. The pain start initially as intermittent sharp pains approximately a week and a half ago. Since the onset of the pain, it has progressed from sharp to a gripping, squeezing pressure. The pain is made worse with any kind of exercise. She used to be able to walk 15-16 blocks with no problems but over the past week has not been able to walk one block without becoming short of breath and experiencing the chest pain. The pain resolves shortly after sits down and rests. She was recently admitted when she was found to be in afib RVR prior to an EGD/ Colonoscopy in July. An ECHO at that time showed an EF ~ 45-50%. She was supposed to have a stress test done as an outpatient approximately two weeks ago but her insurance declined the procedure so it was never done. Patient is currently asymptomatic but had an episode that resulted in pain that radiated to her left shoulder and down her left arm. This was a new symptom that scared the patient and caused her to come to the emergency room today. 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 Denies fevers, chills, nausea, vomiting, diarrhea, constipation, blurry vision, sore throat, cough, palpitations, abdominal pain, headaches, diaphoresis, lightheadedness or dizziness. PMD: Malcolm PMH: epilepsy, one episode of afib w/ RVR in July 2017. Family: Mother of PA at 50 years old, 3 brothers and 1 sister had MIs, Father of lung cancer Social: denies tobacco, alcohol or drug use Allergies: NKDA Past Medical History - Provider Review Nursing Documentation Reviewed: Yes - Past History Past History: Non-Contributing - Infectious Disease Hx of Infectious Diseases: None - Tetanus Immunization Tetanus Immunization: Unknown - Cardiac Hx Cardiac Disorders: Yes Hx Atrial Fibrillation: Yes Hx Heart Murmur: Yes - Pulmonary Hx Respiratory Disorders: No - Neurological Hx Neurological Disorder: Yes Hx Seizures: Yes - HEENT Hx HEENT Disorder: No - Renal Hx Renal Disorder: No - Endocrine/Metabolic Hx Endocrine Disorders: No - Hematological/Oncological Hx Blood Disorders: No - Integumentary Hx Dermatological Disorder: No - Musculoskeletal/Rheumatological Hx Musculoskeletal Disorders: Yes Hx Back Pain: Yes Hx Falls: Yes - Gastrointestinal Hx Gastrointestinal Disorders: Yes Hx Gall Bladder Disease: Yes Hx Gastroesophageal Reflux: Yes - Genitourinary/Gynecological Hx Genitourinary Disorders: Yes - Psychiatric Hx Psychophysiologic Disorder: Yes Hx Panic Disorder: Yes Hx Substance Use: No - Surgical History Hx Section: Yes Other/Comment: NASAL - Anesthesia Hx Anesthesia Reactions: No Hx Malignant Hyperthermia: No - Suicidal Assessment Feels Threatened In Home Enviroment: No Family/Social History - Physician Review Nursing Documentation Reviewed: Yes Family/Social History: Neoplasm/Cancer Narrative Family History (Free Text): Mother of PA at 50 years old, 3 brothers and 1 sister had MIs, Father of lung cancer Smoking Status: Never Smoked Hx Alcohol Use: No Hx Substance Use: No Hx Substance Use Treatment: No Allergies/Home Meds Allergies/Adverse Reactions: Allergies No Known Allergies Allergy (Verified 09/06/17 18:41) Home Medications: Home Meds Medication Instructions Recorded Confirmed RX: Topiramate [Topamax] 50 mg PO BID 08/04/17 09/06/17 RX: Zonisamide [Zonegran] 200 mg PO AMHS 08/04/17 09/06/17 RX: Clobazam [Onfi] 10 mg PO BID 08/09/17 09/06/17 RX: Lacosamide [Vimpat] 100 mg PO HS 08/09/17 09/06/17 Review of Systems - Review of Systems Constitutional: Fatigue (short of breath after one walking one block). absent: Fevers Eyes: Normal. absent: Vision Changes ENT: Normal. absent: Sore Throat Respiratory: SOB. absent: Cough, Wheezing Cardiovascular: Chest Pain (griping/squeezing on left side of chest), WINN ( everytime she attempts to walk or do housework ). absent: Palpitations, Edema, Calf Pain, Orthopnea, Syncope Gastrointestinal: absent: Abdominal Pain Genitourinary Female: absent: Dysuria, Frequency Musculoskeletal: Normal. absent: Back Pain, Neck Pain Skin: Normal Neurological: Normal, Seizure (baseline history of seizures, ). absent: Headache, Dizziness Endocrine: Normal. absent: Diaphoresis Hemo/Lymphatic: Normal. absent: Easy Bleeding, Easy Bruising Psychiatric: Normal. absent: Depression Physical Exam Vital Signs Reviewed: Yes Vital Signs Temp Pulse Resp BP Pulse Ox 09/06/17 18:53 97.6 F 55 L 16 126/58 L 100 Temperature: Afebrile Blood Pressure: Hypotensive Pulse: Bradycardic (HR 64 on monitor during time of exam) Respiratory Rate: Normal Appearance: Positive for: Well-Appearing, Non-Toxic, Comfortable Pain Distress: None Mental Status: Positive for: Alert and Oriented X 3 - Systems Exam Head: Present: Atraumatic, Normocephalic Pupils: Present: PERRL Extroacular Muscles: Present: EOMI Conjunctiva: Present: Normal Mouth: Present: Moist Mucous Membranes Nose (External): Present: Atraumatic Neck: Present: Normal Range of Motion, Trachea Midline. No: JVD Respiratory/Chest: Present: Clear to Auscultation, Good Air Exchange. No: Respiratory Distress, Accessory Muscle Use, Wheezes Cardiovascular: Present: Regular Rate and Rhythm, Normal S1, S2, Other (TTP on left side of chest - pain on palpation is different then gripping/squeezing she experiences on exertion) Abdomen: Present: Normal Bowel Sounds. No: Tenderness, Distention, Peritoneal Signs, Rebound, Guarding Upper Extremity: Present: Normal Inspection, NORMAL PULSES. No: Edema Lower Extremity: Present: Normal Inspection, NORMAL PULSES. No: Edema, CALF TENDERNESS Neurological: Present: GCS=15, CN II-XII Intact, Speech Normal, Motor Func Grossly Intact Skin: Present: Warm, Dry, Normal Color Lymphatic: No: Cervical Adenopathy Psychiatric: Present: Alert, Oriented x 3, Normal Insight, Normal Concentration Medical Decision Making Re-evaluation Time: 20:36 Reassessment Condition: Re-examined, Unchanged - Lab Interpretations Narrative Lab Interpretation (Text): No leukocytosis, Trop negative x 1 Lab Results: 09/06/17 19:45 09/06/17 19:45 Lab Results 09/06/17 19:45: Sodium 143, Potassium 4.3, Chloride 109 H, Carbon Dioxide 26, Anion Gap 12, BUN 12, Creatinine 1.1, Est GFR ( Amer) > 60, Est GFR (Non- Af Amer) 50, Random Glucose 102, Calcium 9.9, Phosphorus 3.2, Magnesium 2.2, Total Bilirubin 0.1 L, AST 25, ALT 25, Alkaline Phosphatase 94, Total Creatine Kinase 48, Troponin I < 0.01, Total Protein 6.8, Albumin 3.8, Globulin 3.0, Albumin/Globulin Ratio 1.3 09/06/17 19:45: WBC 8.2, RBC 4.48, Hgb 13.3, Hct 39.9, MCV 89.1, MCH 29.7, MCHC 33.3, RDW 13.4, Plt Count 343, MPV 9.0, Gran % 54.1, Lymph % (Auto) 34.6, [place] % (Auto) 5.3, Eos % (Auto) 5.6 H, Baso % (Auto) 0.4, Gran # 4.43, Lymph # (Auto ) 2.8, [place] # (Auto) 0.4, Eos # (Auto) 0.5, Baso # (Auto) 0.03 I have reviewed the lab results: Yes - RAD Interpretation Narrative RAD Interpretations (Text): No active disease Radiology Orders: 09/06/17 19:21 CXR [CHEST PORTABLE] [RAD] Stat Lieutenant Firefighter: ED Physician - EKG Interpretation EKG Interpretation (Text): NSR, non-specific non-specific S-T wave changes, poor R wave progression - abnormal EKG Interpreted by ED Physician: Yes Type: 12 lead EKG Comparison: Similar to previous EKG - Medication Orders Current Medication Orders: Discontinued Medications Aspirin (Aspirin) 325 mg PO STAT STA Stop: 09/06/17 19:21 Last Admin: 09/06/17 20:30 Dose: 325 mg Disposition/Present on Arrival - Present on Arrival Any Indicators Present on Arrival: No History of DVT/PE: No History of Uncontrolled Diabetes: No Urinary Catheter: No History of Decub. Ulcer: No History Surgical Site Infection Following: None - Disposition Have Diagnosis and Disposition been Completed?: Yes Diagnosis: Chest pain Disposition: HOSPITALIZED Disposition Time: 20:48 Patient Plan: Admission, Telemetry Patient Problems: Current Active Problems Problem Status Onset Chest pain Acute Condition: FAIR
[2017-09-06 20:09] LABS: ALB/GLOB RATIO 1.3 (1.1-1.8); ALBUMIN 3.8 g/dL (3.0-4.8); ALT/SGPT 25 U/L (7-56); AST/SGOT 25 U/L (14-36); BLOOD UREA NITROGEN 12 mg/dL (7-21); CALCIUM 9.9 mg/dL (8.4-10.5); GFR AFRICAN-AMERICAN > 60; GFR NON-AFRICAN AMERICAN 50
[2017-09-06 20:13] LABS: TROPONIN I < 0.01 ng/mL
--- NOTE | 2017-09-06 22:01 | CP.PCM.HP ---
History of Present Illness - History of Present Illness History of Present Illness: Darya Cowan, PGY1, H&P for Dr Cartagena: CC: exertional cp 62 year old female with a past medical history of epilepsy, presents for extertional cp for past 1.5 weeks. Pt describes the pain as left sided, pinching , tightening, radiating to left arm, occurs while she is walking down the block. Relieved partially by rest. Denies n/v, epigastric pain, diaphoresis, syncope, dizziness, LOC. Pt was scheduled for stress test last week by a doctor at [facility] [place], [place], however it was canceled due to insurance issues. Pt states that she would like to get it done here at this admission. Otherwise, denies f/c, headache, neck pain, trauma to the chest, abdominal pain, cough, diarrhea, constipation, leg swelling, urinary symptoms. 12 point ROS obtained and negative, except as per HPI. PMD: Dr. Fowler GI: Dr. Douglas Neurologist: Dr. Moreland PMHx: seizures (dx at age 18), afib with RVR (one time episode after colonoscopy ), GERD, migraine headaches, prior hx of panic attacks, heart murmur when she was a child PSurgHx: Neck surgery (unclear which kind), , cholecystectomy, appendectomy Meds: pls see chart ALL: NKDA SocHx: denies Tobacco, etoh, recreational drug use. 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 States she needs to get back home to care for her . stays active and walks 15 blocks per day FamHx: Father, throat CA. Mother, at age 50 from [place]. CKD Brothers, sisters, nephews all have heart disease (unspecified). Present on Admission - Present on Admission Any Indicators Present on Admission: No History of DVT/PE: No History of Uncontrolled Diabetes: No Urinary Catheter: No Decubitus Ulcer Present: No Review of Systems - Review of Systems All systems: reviewed and no additional remarkable complaints except Review of Systems: as per HPI Past Patient History - Infectious Disease Hx of Infectious Diseases: None - Tetanus Immunizations Tetanus Immunization: Unknown - Past Social History Smoking Status: Never Smoked - CARDIAC Hx Cardiac Disorders: Yes Hx Atrial Fibrillation: Yes Hx Heart Murmur: Yes - PULMONARY Hx Respiratory Disorders: No - NEUROLOGICAL Hx Neurological Disorder: Yes Hx Seizures: Yes - HEENT Hx HEENT Problems: No - RENAL Hx Chronic Kidney Disease: No - ENDOCRINE/METABOLIC Hx Endocrine Disorders: No - HEMATOLOGICAL/ONCOLOGICAL Hx Blood Disorders: No - INTEGUMENTARY Hx Dermatological Problems: No - MUSCULOSKELETAL/RHEUMATOLOGICAL Hx Musculoskeletal Disorders: Yes Hx Back Pain: Yes Hx Falls: Yes - GASTROINTESTINAL Hx Gastrointestinal Disorders: Yes Hx Gall Bladder Disease: Yes Hx Gastroesophageal Reflux: Yes - GENITOURINARY/GYNECOLOGICAL Hx Genitourinary Disorders: Yes - PSYCHIATRIC Hx Psychophysiologic Disorder: Yes Hx Panic Symptoms: Yes Hx Substance Use: No - SURGICAL HISTORY Hx Section: Yes Other/Comment: NASAL - ANESTHESIA Hx Anesthesia Reactions: No Hx Malignant Hyperthermia: No Meds Allergies/Adverse Reactions: Allergies Allergy/AdvReac Type Severity Reaction Status Date / Time No Known Allergies Allergy Verified 09/06/17 18:41 Physical Exam - Constitutional Appears: Non-toxic, No Acute Distress - Head Exam Head Exam: ATRAUMATIC, NORMOCEPHALIC - Eye Exam Eye Exam: EOMI, PERRL. absent: Conjunctival injection, Nystagmus, Scleral icterus Pupil Exam: NORMAL ACCOMODATION, PERRL. absent: Fixed, Irregular, Unequal - ENT Exam ENT Exam: Mucous Membranes Moist - Neck Exam Neck exam: Positive for: Full Rom - Respiratory Exam Respiratory Exam: Chest Wall Tenderness (TTP on left side of chest and left arm) , Clear to Auscultation Bilateral, NORMAL BREATHING PATTERN. absent: Accessory Muscle Use, Rhonchi, Wheezes, Respiratory Distress - Cardiovascular Exam Cardiovascular Exam: RRR, +S1, +S2. absent: Systolic Murmur - GI/Abdominal Exam GI & Abdominal Exam: Normal Bowel Sounds, Soft. absent: Distended, Guarding, Mass, Organomegaly, Rebound, Rigid, Tenderness - Extremities Exam Extremities exam: Positive for: normal inspection. Negative for: calf tenderness, pedal edema - Back Exam Back exam: NORMAL INSPECTION - Neurological Exam Neurological exam: Alert, Oriented x3 - Psychiatric Exam Psychiatric exam: Normal Affect, Normal Mood - Skin Skin Exam: Dry, Normal Color, Warm Results - Vital Signs Recent Vital Signs: Last Vital Signs Temp 97.6 F 09/06/17 18:53 Pulse 48 L 09/06/17 21:54 Resp 18 09/06/17 21:54 BP 138/69 09/06/17 21:54 Pulse Ox 100 04/10/18 21:54 - Labs Result Diagrams: 09/06/17 19:45 09/06/17 19:45 Assessment & Plan - Assessment and Plan (Free Text) Assessment: 62 year old female with PMH epilepsy, afib with RVR, presents with reproducible cp: Chest pain r/o ACS - trops neg x2. serial trops and ekg in AM. - EKG pend official read - f/u A1c, lipid panel, tsh - ASA 325 given in ED. c/w home ASA 81 mg. - start lipitor 10 mg - metoprolol 25 mg - holding parameters given - Heart Healthy Diet - Cardio Dr. Reeves on board Hx of seizure disorder - Restarted on home meds Clobazam 10mg po bid Vimpat 100mg po hs Zonisamide 200mg po amhs - Seizure and fall precautions - 60g protein in diet GI ppx: Protonix DVT ppx: SCDs Diet: HHD Precautions: Fall/Seizure Discussed with Dr. Cartagena - Date & Time Date: 09/07/17 Time: 03:49
[2017-09-06 22:42] LABS: HDL CHOLESTEROL 53 mg/dL (29-60)
[2017-09-06 22:52] LABS: LDL CHOLESTEROL 101 mg/dL (0-129)
[2017-09-07] MEDS ORDERED: Pantoprazole 20 mg EC Tab PO SCH (06:00)
[2017-09-07 06:16] VITALS: O2SAT 98
[2017-09-07 06:25] LABS: BASO # 0.04 K/mm3 (0.0-2.0); BASO % 0.5 % (0.0-3.0); EOS # 0.5 (0.0-0.7); GRAN # 3.52 (1.4-6.5); GRAN % 47.2 % (50.0-68.0); HEMOGLOBIN 12.9 g/dL (12.0-16.0); LYMPH # 2.9 (1.2-3.4); LYMPH % 39.5 % (22.0-35.0); MEAN CELL VOLUME 88.7 fl (80.0-105.0); MEAN CORPUSCULAR HEMOGLOBIN 29.1 pg (25.0-35.0); MEAN CORPUSCULAR HGB CONC 32.7 g/dl (31.0-37.0); MEAN PLATELET VOLUME 9.4 fl (7.0-11.0); MONO # 0.4 (0.1-0.6); MONO % 5.8 % (1.0-6.0); RBC 4.44 10^6/uL (3.5-6.1); RED CELL DISTRIBUTION WIDTH 13.4 % (11.5-14.5); WHITE BLOOD COUNT 7.5 10^3/ul (4.5-11.0)
[2017-09-07 06:56] LABS: ALB/GLOB RATIO 1.2 (1.1-1.8); ALBUMIN 3.3 g/dL (3.0-4.8); ALT/SGPT 25 U/L (7-56); AST/SGOT 21 U/L (14-36); BLOOD UREA NITROGEN 12 mg/dL (7-21); CALCIUM 9.3 mg/dL (8.4-10.5); GFR AFRICAN-AMERICAN > 60; GFR NON-AFRICAN AMERICAN 56
--- NOTE | 2017-09-07 09:13 | RAD ---
HISTORY: Chest pain COMPARISON: 08/10/2015 FINDINGS: LUNGS: No active pulmonary disease. PLEURA: No significant pleural effusion identified, no pneumothorax apparent. CARDIOVASCULAR: No radiographic findings to suggest acute or significant cardiovascular disease. OSSEOUS STRUCTURES: No significant abnormalities. VISUALIZED UPPER ABDOMEN: Normal. OTHER FINDINGS: None. IMPRESSION: No active disease. No significant interval change compared to the prior examination(s).
[2017-09-07] MEDS ORDERED: CLOBAZAM 10 MG PO SCH ×2 (10:00)
[2017-09-07] MEDS ORDERED: VIMPAT 100 MG PO SCH (10:00)
--- NOTE | 2017-09-07 11:18 | CARD ---
APPROVED REPORT EKG Measurement Heart [id number] <Conclusion> Sinus bradycardia Left axis deviation PRWP NSSTW changes AF no longer present
--- NOTE | 2017-09-07 11:18 | CARD ---
APPROVED REPORT EKG Measurement Heart [id number] <Conclusion> Sinus bradycardia with 1st degree AV block Nonspecific ST and T wave abnormality Abnormal ECG
[2017-09-07] MEDS ORDERED: ZONISAMIDE 100MG PO SCH (12:18)
[2017-09-07 12:23] VITALS: BP 127/56; RESP 16; TEMP 97.6
[2017-09-07] MEDS ORDERED: ZONISAMIDE 100 MG PO SCH ×2 (13:44→22:00)
[2017-09-07 14:32] VITALS: PULSE 71
--- NOTE | 2017-09-07 15:11 | CON ---
DATE: 09/07/2017 CARDIOLOGY CONSULTATION HISTORY OF PRESENT ILLNESS: The patient is a 62-year-old woman who presents with 2 months of intermittent chest pain. She has been seen her teaching assistant in [place], who has done various test and has told her heart is okay. Her symptoms have progressed. Currently, the patient is chest pain free. PAST MEDICAL HISTORY: Notable for questionable COPD. No previous cardiac history is noted. No cardiac risk factors. SOCIAL HISTORY: She denies smoking. REVIEW OF SYSTEMS: A 14-point review of systems was reviewed in detail. No cardiac symptomatology is noted. The patient is able to ambulate without symptoms. PHYSICAL EXAMINATION VITAL SIGNS: Blood pressure is 127/56, the heart rate is in the 50s at rest. NECK: Negative JVD. LUNGS: Without rales. HEART: Reveals S1, S2. EXTREMITIES: Without edema. LABORATORY DATA: Hemoglobin is 12.9. Chemistries, troponins are negative x3. IMPRESSION: 1. Chronic chest pain. 2. No evidence for acute coronary syndrome. 3. No previous cardiac history. There is question of hypercholesterolemia. PLAN: Given these findings, there is no evidence for acute coronary syndrome. The patient is agreeable for a stress test. We will arrange for an outpatient stress Cardiolite later this week. From a cardiac perspective, the patient can be discharged. Raj Reeves MD
[2017-09-07] MEDS ORDERED: LACOSAMIDE 100 MG PO SCH (22:00)
--- NOTE | 2017-09-08 08:36 | CP.PCM.DIS ---
<Benjamin Sher - Last Filed: 09/08/17 19:42> Provider - Provider Date of Admission: 09/06/17 20:41 Attending physician: Sherman Jose MD Primary care physician: Halley Fowler MD Consults: Cardio: Dr. Raj Reeves Time Spent in preparation of Discharge (in minutes): 35 Diagnosis - Discharge Diagnosis (1) Chest pain Status: Acute Hospital Course - Lab Results Lab Results: Most Recent Lab Values WBC 7.5 10^3/ul (4.5-11.0) 09/07/17 06:00 RBC 4.44 10^6/uL (3.5-6.1) 09/07/17 06:00 Hgb 12.9 g/dL (12.0-16.0) 09/07/17 06:00 Hct 39.4 % (36.0-48.0) 09/07/17 06:00 MCV 88.7 fl (80.0-105.0) 09/07/17 06:00 MCH 29.1 pg (25.0-35.0) 09/07/17 06:00 MCHC 32.7 g/dl (31.0-37.0) 09/07/17 06:00 RDW 13.4 % (11.5-14.5) 09/07/17 06:00 Plt Count 336 10^3/uL (120.0-450.0) 09/07/17 06:00 MPV 9.4 fl (7.0-11.0) 09/07/17 06:00 Gran % 47.2 % (50.0-68.0) L 09/07/17 06:00 Lymph % (Auto) 39.5 % (22.0-35.0) H 09/07/17 06:00 [place] % (Auto) 5.8 % (1.0-6.0) 09/07/17 06:00 Eos % (Auto) 7.0 % (1.5-5.0) H 09/07/17 06:00 Baso % (Auto) 0.5 % (0.0-3.0) 09/07/17 06:00 Gran # 3.52 (1.4-6.5) 09/07/17 06:00 Lymph # (Auto) 2.9 (1.2-3.4) 09/07/17 06:00 [place] # (Auto) 0.4 (0.1-0.6) 09/07/17 06:00 Eos # (Auto) 0.5 (0.0-0.7) 09/07/17 06:00 Baso # (Auto) 0.04 K/mm3 (0.0-2.0) 09/07/17 06:00 Sodium 143 mmol/L (132-148) 09/07/17 06:00 Potassium 3.6 mmol/L (3.6-5.0) 09/07/17 06:00 Chloride 111 mmol/L (98-107) H 09/07/17 06:00 Carbon Dioxide 23 mmol/L (21-33) 09/07/17 06:00 Anion Gap 12 (10-20) 09/07/17 06:00 BUN 12 mg/dL (7-21) 09/07/17 06:00 Creatinine 1.0 mg/dl (0.7-1.2) 09/07/17 06:00 Est GFR ( Amer) > 60 09/07/17 06:00 Est GFR (Non-Af Amer) 56 09/07/17 06:00 Random Glucose 87 mg/dL (70-110) 09/07/17 06:00 Hemoglobin A1c 5.7 % (4.2-6.5) 09/06/17 19:45 Calcium 9.3 mg/dL (8.4-10.5) 09/07/17 06:00 Phosphorus 3.4 mg/dL (2.5-4.5) 09/07/17 06:00 Magnesium 2.2 mg/dL (1.7-2.2) 09/07/17 06:00 Total Bilirubin 0.3 mg/dL (0.2-1.3) 09/07/17 06:00 AST 21 U/L (14-36) 09/07/17 06:00 ALT 25 U/L (7-56) 09/07/17 06:00 Alkaline Phosphatase 86 U/L (38-126) 09/07/17 06:00 Total Creatine Kinase 48 U/L (35-230) 09/06/17 19:45 Troponin I < 0.01 ng/mL 09/07/17 06:00 Total Protein 6.1 g/dL (5.8-8.3) 09/07/17 06:00 Albumin 3.3 g/dL (3.0-4.8) 09/07/17 06:00 Globulin 2.8 gm/dL 09/07/17 06:00 Albumin/Globulin Ratio 1.2 (1.1-1.8) 09/07/17 06:00 Triglycerides 97 mg/dL (35-160) 09/06/17 19:45 Cholesterol 191 mg/dL (130-200) 09/06/17 19:45 LDL Cholesterol Direct 101 mg/dL (0-129) 09/06/17 19:45 HDL Cholesterol 53 mg/dL (29-60) 09/06/17 19:45 TSH 3rd Generation 2.07 mIU/mL (0.46-4.68) 09/06/17 19:45 - Hospital Course Hospital Course: Patient is a 62 year old female with past medical history of seizures, single episode of afib with RVR in 07/2017, GERD, migraine headaches, prior hx of panic attacks, heart murmurs who [place] [facility] complaining of a 10 day history of chest pain. Patient was evaluated in ED and found to have EKG showing sinus bradycardia and nonspecific ST segment elevations or depression, initially negative troponin and admitted for ACS rule out. Patient serial troponins were negative x3 and patient did not have worsening of her presenting symptoms. Cardiology was consulted and evaluated the patient to have chronic chest pain and hyperlipidemia. Patient was scheduled for outpatient stress test and to follow up with cardiology outpatient. Plan for discharge and outpatient follow up was discussed with the patient and she was agreeable with plan for outpatient follow up and stress test. At time of discharge patient was hemodynamically stable. Medications and discharge instructions were explained to patient and all questions were answered. - Date & Time of H&P Date of H&P: 09/07/17 Time of H&P: 03:50 Discharge Exam - Head Exam Head Exam: ATRAUMATIC, NORMOCEPHALIC - Eye Exam Eye Exam: PERRL - Respiratory Exam Respiratory Exam: Clear to PA & Lateral, NORMAL BREATHING PATTERN. absent: Rales, Rhonchi - Cardiovascular Exam Cardiovascular Exam: Bradycardia, +S1, +S2 - GI/Abdominal Exam GI & Abdominal Exam: Normal Bowel Sounds, Soft. absent: Firm, Tenderness - Extremities Exam Extremities exam: full ROM, normal inspection - Back Exam Back exam: absent: paraspinal tenderness - Neurological Exam Neurological exam: Alert, Normal Gait, Oriented x3 - Psychiatric Exam Psychiatric exam: Normal Affect, Normal Mood - Skin Skin Exam: Dry, Warm Discharge Plan - Follow Up Plan Condition: FAIR Disposition: HOME/ ROUTINE Instructions: Heart Healthy Diet, Chest Pain (DC), Chest Pain (GEN) Additional Instructions: - Follow up with primary care physician within one to two weeks upon discharge - Follow up with nuclear stress test outpatient - Take medications as prescribed to you - Continue current diet restrictions and abide by heart healthy low salt diet - Return to nearest ED if you begin experiencing worsening of chest pain, shortness of breath with exertion Referrals: Halley Fowler MD [Primary Care Provider] - <Sherman Jose - Last Filed: 09/09/17 08:15> Provider - Provider Date of Admission: 09/06/17 20:41 Attending physician: Sherman Jose MD Primary care physician: Halley Fowler MD Hospital Course - Lab Results Lab Results: Most Recent Lab Values WBC 7.5 10^3/ul (4.5-11.0) 09/07/17 06:00 RBC 4.44 10^6/uL (3.5-6.1) 09/07/17 06:00 Hgb 12.9 g/dL (12.0-16.0) 09/07/17 06:00 Hct 39.4 % (36.0-48.0) 09/07/17 06:00 MCV 88.7 fl (80.0-105.0) 09/07/17 06:00 MCH 29.1 pg (25.0-35.0) 09/07/17 06:00 MCHC 32.7 g/dl (31.0-37.0) 09/07/17 06:00 RDW 13.4 % (11.5-14.5) 09/07/17 06:00 Plt Count 336 10^3/uL (120.0-450.0) 09/07/17 06:00 MPV 9.4 fl (7.0-11.0) 09/07/17 06:00 Gran % 47.2 % (50.0-68.0) L 09/07/17 06:00 Lymph % (Auto) 39.5 % (22.0-35.0) H 09/07/17 06:00 [place] % (Auto) 5.8 % (1.0-6.0) 09/07/17 06:00 Eos % (Auto) 7.0 % (1.5-5.0) H 09/07/17 06:00 Baso % (Auto) 0.5 % (0.0-3.0) 09/07/17 06:00 Gran # 3.52 (1.4-6.5) 09/07/17 06:00 Lymph # (Auto) 2.9 (1.2-3.4) 09/07/17 06:00 [place] # (Auto) 0.4 (0.1-0.6) 09/07/17 06:00 Eos # (Auto) 0.5 (0.0-0.7) 09/07/17 06:00 Baso # (Auto) 0.04 K/mm3 (0.0-2.0) 09/07/17 06:00 Sodium 143 mmol/L (132-148) 09/07/17 06:00 Potassium 3.6 mmol/L (3.6-5.0) 09/07/17 06:00 Chloride 111 mmol/L (98-107) H 09/07/17 06:00 Carbon Dioxide 23 mmol/L (21-33) 09/07/17 06:00 Anion Gap 12 (10-20) 09/07/17 06:00 BUN 12 mg/dL (7-21) 09/07/17 06:00 Creatinine 1.0 mg/dl (0.7-1.2) 09/07/17 06:00 Est GFR ( Amer) > 60 09/07/17 06:00 Est GFR (Non-Af Amer) 56 09/07/17 06:00 Random Glucose 87 mg/dL (70-110) 09/07/17 06:00 Hemoglobin A1c 5.7 % (4.2-6.5) 09/06/17 19:45 Calcium 9.3 mg/dL (8.4-10.5) 09/07/17 06:00 Phosphorus 3.4 mg/dL (2.5-4.5) 09/07/17 06:00 Magnesium 2.2 mg/dL (1.7-2.2) 09/07/17 06:00 Total Bilirubin 0.3 mg/dL (0.2-1.3) 09/07/17 06:00 AST 21 U/L (14-36) 09/07/17 06:00 ALT 25 U/L (7-56) 09/07/17 06:00 Alkaline Phosphatase 86 U/L (38-126) 09/07/17 06:00 Total Creatine Kinase 48 U/L (35-230) 09/06/17 19:45 Troponin I < 0.01 ng/mL 09/07/17 06:00 Total Protein 6.1 g/dL (5.8-8.3) 09/07/17 06:00 Albumin 3.3 g/dL (3.0-4.8) 09/07/17 06:00 Globulin 2.8 gm/dL 09/07/17 06:00 Albumin/Globulin Ratio 1.2 (1.1-1.8) 09/07/17 06:00 Triglycerides 97 mg/dL (35-160) 09/06/17 19:45 Cholesterol 191 mg/dL (130-200) 09/06/17 19:45 LDL Cholesterol Direct 101 mg/dL (0-129) 09/06/17 19:45 HDL Cholesterol 53 mg/dL (29-60) 09/06/17 19:45 TSH 3rd Generation 2.07 mIU/mL (0.46-4.68) 09/06/17 19:45 Attending/Attestation - Attestation I have personally seen and examined this patient.: Yes I have fully participated in the care of the patient.: Yes I have reviewed all pertinent clinical information, including history, physical exam and plan: Yes Notes (Text): 09/08/17 62 year old female with past medical history of seizure and paroxysmal afib who presented with complaint of chest pain. Serial cardiac enzymes were negative and ACS was ruled out. She was seen by cardiology who recommended outpatient stress test. Patient is discharged home to follow up with her pmd. Recommend outpatient stress test. Sherman Jose MD Hospitalist.
== END 2017-09-07 14:42 | disposition home or self-care (01) ==
LOC: ED 18:21 → ERH 20:41 → 2RNO 22:20
PROVIDERS: ADMIT Internal Medicine; ATTEND Internal Medicine
DX: R07.9 Chest pain, unspecified (principal); G40.909 Epilepsy, unspecified, not intractable, without status epilepticus; K21.9 Gastro-esophageal reflux disease without esophagitis; I48.91 Unspecified atrial fibrillation; F41.0 Panic disorder [episodic paroxysmal anxiety]; G43.909 Migraine, unspecified, not intractable, without status migrainosus; Z79.82 Long term (current) use of aspirin
CPT/HCPCS: 36415; 71045; 80053; 80061; 82554; 83036; 83735; 84100; 84443; 84484; 85025; 93005; 99285; G0378